=== PATIENT | male | born 1950 ===

== ENCOUNTER → 2016-05-02 | Outpatient (CLI) | payer MEDICARE ==
[~2016-05-02] MED LIST: ALBUTEROL2.5 MG/0.5 INH; AMIODARONE HCL100 MG PO; ARTIFICIAL TEAR15 M5 OPHTH; BOOST BREEZE237 ML PO; CALCIUM 500 +1 EAC2 PO; COUMADIN ** IA3 MG PO; COUMADIN6 MG PO; CPAP; CPAP INH; DELTASONE5 MG PO; DULCOLAX10 MG R; FLORINEF0.1 MG PO; FOLIC ACID1 MG PO; FOSAMAX70 MG PO; HUMIBID LA (MU600 MG PO; HYDROCORTISON28.4 G2 TOP; IPRAT-ALBUT 0.5-3 ML INH; K-TAB ER20 MEQ PO; K-TAB OR KLOR-10 MEQ PO; KLOR-CON M2020 MEQ PO; LACTINEX (FLORA1 TAB PO; LOTRIMIN30 GM TOP; MILK OF MA400 MG/5 M PO; MINIPRESS2 MG PO; MIRALAX17 GM PO; NEURONTIN300 MG PO; NIZORAL30 GM TOP; OXYCONTIN EXTEN10 MG PO; OXYGEN M-15 NS; PAXIL20 MG PO; PAXIL40 M1 PO; PERCOCET 10-321 EACH PO; PRAVACHOL80 MG PO; PRILOSEC20 MG PO; REMERON 30 MG30 MG PO; RHEUMATREX2.5 MG PO; RISPERDAL1 MG PO; ROCEPHIN1 G1 IM; TOPROL XL25 MG PO; TRIACET 0.1% 8080 GM TOP; TYLENOL325 MG PO; ULTRAM50 MG PO; VASOTEC2.5 MG PO; VITAMIN B-1000 MCG/M SUB-Q; VITAMIN D35000 UNI1 PO; XANAX0.5 MG PO
[2016-05-02 10:04] LABS: PROTIME 22.3 SECONDS (9.6-11.1)
== END | disposition disaster alternative care site (69) ==
LOC: LJOHN2 05-01 17:08
PROVIDERS: Family Medicine
DX: I48.91 Unspecified atrial fibrillation (principal)

== ENCOUNTER 2016-05-24 11:43 | Emergency (ER) | payer MEDICARE ==
--- NOTE | ~2016-05-24 | ER ---
PATIENT'S NAME: MELECIO DUMONT [facility] AGE: 66 Y [address] ROOM: [place] [address] LOCATION: [facility] ADMIT DATE: 05/24/2016 ER/Outpatient Report DISCHARGE DATE: 05/24/2016 FAMILY PHYSICIAN: Bud Herr MD ATTENDING PHYSICIAN: Dayne Owusu Admission date and time documented on the medical record. I saw the patient at 1145 hours. CHIEF COMPLAINT: Sore throat and problem with swallowing. HISTORY OF PRESENT ILLNESS: This patient is a 66-year-old male, brought to the emergency room for evaluation, sore throat, and difficulty swallowing. The patient lives at [facility]. He signed a form, stating that he did not want to take the thickened liquid diet and he wanted regular liquids. He does have a problem with dysphagia and aspiration. The patient has been having a sore throat and some problem with swallowing and some changes in his mentation and his breathing. The snf was concerned that he may have developed an aspiration pneumonia. The patient initially went to [facility] and then was directed here to the emergency room for evaluation. The patient does have a history of COPD, hypertension, and acute on chronic respiratory failure. He has had previous aspiration pneumonias. He is chronically anticoagulated with Coumadin. He does have cerebrovascular disease. Multiple medical problems. Denies any shortness of breath or chest pain. No abdominal pain. He has not had any nausea, vomiting, diarrhea, or urinary complaints. No headache, eyes, ears, nose, throat, neck, or spine pain. No extremity pain. No fall or trauma. The patient denies lightheadedness, dizziness, syncope, or near syncope. The patient does have posttraumatic stress disorder and schizophrenia. No endocrine problems. HOME MEDICATIONS: See attached medication list. ALLERGIES: AVELOX AND MOXIFLOXACIN. SOCIAL HISTORY: Nonsmoker and nondrinker. SIGNIFICANT PAST MEDICAL HISTORY: Hypertension; COPD; chronic respiratory failure; pneumonia; gastroesophageal reflux; paroxysmal atrial fibrillation; chronic anticoagulation with Coumadin; dysphagia; cerebrovascular disease; obstructive sleep apnea, on CPAP; PATIENT'S NAME: MELECIO DUMONT [facility] AGE: 66 Y [address] ROOM: [place] [address] LOCATION: [facility] ADMIT DATE: 05/24/2016 ER/Outpatient Report DISCHARGE DATE: 05/24/2016 FAMILY PHYSICIAN: Bud Herr MD ATTENDING PHYSICIAN: Dayne Owusu orthostatic hypotension; neutropenia; remote tobacco abuse; exogenous obesity; pulmonary embolism; degenerative osteoarthritis, posttraumatic stress disorder; schizophrenia; and vertebral compression fractures. OPERATIONS: Epidural steroid injection, right knee arthroscopy, cholecystectomy, catheterization, back surgery, and right ankle surgery. REVIEW OF SYSTEMS: All systems reviewed by me are negative with the exception of those discussed in the history of present illness. PHYSICAL EXAMINATION: VITAL SIGNS: Temperature 97.4 tympanic, pulse 92, blood pressure 118/73, and O2 saturation on 3 L oxygen per nasal cannula is 94%. HEAD: Normocephalic. No abrasion, contusion, laceration, or swelling of the scalp or face. EYES: Extraocular muscles intact. PERRL. EARS: Clear TMs bilaterally. NOSE: Clear. THROAT: Posterior pharynx clear. Mucous membranes are dry from mouth breathing. NECK: No nuchal rigidity. No findings of adenopathy. LUNGS: Basilar rales. No rhonchi or wheezes. Otherwise, fairly good air flow. HEART: Regular. Pulses are palpable. No chest pain to palpation. ABDOMEN: Obese, soft, nondistended, and nontender. Good bowel tones. No organomegaly or abnormal masses palpable. EXTREMITIES: Without peripheral edema, cyanosis, or deformity. NEUROVASCULAR: Intact. SKIN: Clear. IMAGING DATA: Chest x-ray showed no acute infiltrate. Does have some increased vascular congestion. We will review x-ray with the radiologist. LABORATORY DATA: CMS was normal except for a low anion gap of 8.8. Amylase and lipase were normal. CPK was normal at 138. Point of care cardiac enzymes were normal. CRP was 5.04. ProBNP was slightly elevated at 174. White count was 4700, 71 segs, 15 lymphs, 12 monos, hemoglobin was 13.4, hematocrit 41.0, and platelet count was low at 106,000. Lactate was 0.9. Procalcitonin was 0.05. EKG showed sinus rhythm. No acute ST elevation, ischemic change, or arrhythmia. IMPRESSION: PATIENT'S NAME: MELECIO DUMONT [facility] AGE: 66 Y [address] ROOM: [place] [id number] LOCATION: ED ADMIT DATE: 05/24/2016 ER/Outpatient Report DISCHARGE DATE: 05/24/2016 FAMILY PHYSICIAN: Bud Herr MD ATTENDING PHYSICIAN: Dayne Owusu 1. Sore throat secondary to dry mucous membranes from mouth breathing. 2. Dysphagia. No evidence of aspiration pneumonia at this time. 3. Increased pulmonary vascular congestion. 4. Hypertension. 5. Chronic obstructive pulmonary disease with a history of chronic respiratory failure. 6. Paroxysmal atrial fibrillation, chronically anticoagulated with Coumadin. 7. Cerebrovascular disease. 8. Obstructive sleep apnea, using CPAP. 9. Remote tobacco abuse. 10. Exogenous obesity. 11. History of posttraumatic stress disorder and schizophrenia. PLAN: I did discuss my findings and recommendations with the patient. We will continue on his present medications and treatment plans. Follow up with personal physician in 7 days or sooner if needed. DAYNE OWUSU MD SDS/modl /[id number] d: 05/24/16 2206 t: 05/25/16 0633, OUTPATIENT REPORT
[~2016-05-24 11:43] MED LIST changes: -BOOST BREEZE237 ML PO; -LOTRIMIN30 GM TOP; -NEURONTIN300 MG PO; -TRIACET 0.1% 8080 GM TOP
[2016-05-24 12:27] LABS: EOSINOPHIL % 0.4 %; HEMOGLOBIN 13.4 g/dL (11.0-16.0); IMMATURE GRANULOCYTE # 0.1 K/uL (0.0-0.3); IMMATURE GRANULOCYTE % 2.3 %; LYMPHOCYTE # 0.7 K/uL (0.8-4.0); LYMPHOCYTE % 14.5 %; MCH 32.1 pg (27.0-34.0); MCHC 32.7 gm/dL (32.0-36.5); MCV 98.1 fl (83.0-98.0); MONOCYTE # 0.6 K/uL (0.0-1.0); MONOCYTE % 11.9 %; MPV 10.4 fl (9.4-12.4); NEUTROPHIL # (ANC) 3.3 K/uL (1.4-9.0); NEUTROPHIL % 70.9 %; NRBC % 0 /100WBC (0-0.00); PLATELET COUNT 106 K/uL (150-450); RBC 4.18 M/uL (3.50-5.50); RDW-CV 13.1 % (11.9-14.6); WBC 4.7 K/uL (4.0-11.0)
[2016-05-24 12:43] LABS: ALBUMIN 3.1 gm/dL (3.5-5.0); ALK PHOS 70 IU/L (33-138); ALT 16 IU/L (12-78); ANION GAP 8.8 (10.0-19.0); AST 18 IU/L (10-40); BLOOD UREA NITROGEN 12 mg/dL (6-24); CALCIUM 9.1 mg/dL (8.5-10.5); CHLORIDE 106 mMol/L (96-110); CO2 32 mMol/L (22-32); CPK 138 IU/L (35-332); CREATININE 0.9 mg/dL (0.6-1.3); ESTIMATED GFR (MDRD EQUATION) > 60; POTASSIUM 3.8 mMol/L (3.7-5.1); SODIUM 143 mMol/L (135-145); TOTAL BILIRUBIN 1.2 mg/dL (0.0-1.5); TOTAL PROTEIN 6.8 g/dL (6.0-8.4)
== END 2016-05-24 14:30 | disposition disaster alternative care site (69) ==
LOC: GMED 11:43
PROVIDERS: Emergency Medicine
DX: R68.2 Dry mouth, unspecified (principal); J02.9 Acute pharyngitis, unspecified; R13.10 Dysphagia, unspecified; R09.89 Other specified symptoms and signs involving the circulatory and respiratory systems; I10 Essential (primary) hypertension; J44.9 Chronic obstructive pulmonary disease, unspecified; I48.0 Paroxysmal atrial fibrillation; G47.33 Obstructive sleep apnea (adult) (pediatric); E66.9 Obesity, unspecified; F43.10 Post-traumatic stress disorder, unspecified; F20.9 Schizophrenia, unspecified; M19.90 Unspecified osteoarthritis, unspecified site; Z79.01 Long term (current) use of anticoagulants; K21.9 Gastro-esophageal reflux disease without esophagitis; Z88.1 Allergy status to other antibiotic agents; Z86.73 Personal history of transient ischemic attack (TIA), and cerebral infarction without residual deficits; Z87.01 Personal history of pneumonia (recurrent); Z86.711 Personal history of pulmonary embolism; Z90.49 Acquired absence of other specified parts of digestive tract; Z98.890 Other specified postprocedural states

== ENCOUNTER → 2016-05-30 | Outpatient (CLI) | payer MEDICARE ==
[~2016-05-30] MED LIST changes: +BOOST BREEZE237 ML PO; +LOTRIMIN30 GM TOP; +NEURONTIN300 MG PO; +TRIACET 0.1% 8080 GM TOP
[2016-05-30 09:42] LABS: PROTIME 22.6 SECONDS (9.6-11.1)
== END | disposition disaster alternative care site (69) ==
LOC: LJOHN2 05-29 12:09
PROVIDERS: Family Medicine
DX: I48.91 Unspecified atrial fibrillation (principal)

== ENCOUNTER → 2016-06-27 | Outpatient (CLI) | payer MEDICARE ==
[2016-06-27 10:11] LABS: INR - (THERAPEUTIC) 3.95 (0.92-1.07); PROTIME 42.1 SECONDS (9.8-11.4)
== END ==
LOC: LJOHN2 06-26 14:26
PROVIDERS: Family Medicine
DX: I48.91 Unspecified atrial fibrillation (principal)

== ENCOUNTER → 2016-06-28 | Outpatient (CLI) | payer MEDICARE ==
[2016-06-28 13:33] LABS: INR - (THERAPEUTIC) 1.24 (0.92-1.07); PROTIME 13.1 SECONDS (9.8-11.4)
== END ==
LOC: LJOHN2 12:34
PROVIDERS: Family Medicine
DX: I48.91 Unspecified atrial fibrillation (principal)

== ENCOUNTER → 2016-07-05 | Outpatient (CLI) | payer MEDICARE ==
[2016-07-05 11:04] LABS: INR - (THERAPEUTIC) 2.54 (0.92-1.07); PROTIME 26.9 SECONDS (9.8-11.4)
== END | disposition disaster alternative care site (69) ==
LOC: LJOHN2 10:52
PROVIDERS: Family Medicine
DX: I48.91 Unspecified atrial fibrillation (principal)

== ENCOUNTER → 2016-07-18 | Outpatient (CLI) | payer MEDICARE ==
[2016-07-18 14:13] LABS: ALBUMIN 2.9 gm/dL (3.5-5.0); TOTAL PROTEIN 6.4 g/dL (6.0-8.4)
== END | disposition disaster alternative care site (69) ==
LOC: LCNC 13:44
PROVIDERS: Internal Medicine Interventional Cardiology
DX: Z79.899 Other long term (current) drug therapy (principal)

== ENCOUNTER → 2016-08-01 | Outpatient (CLI) | payer MEDICARE ==
[2016-08-01 09:55] LABS: INR - (THERAPEUTIC) 3.01 (0.92-1.07)
== END | disposition disaster alternative care site (69) ==
LOC: LJOHN2 07-31 16:35
PROVIDERS: Family Medicine
DX: I48.91 Unspecified atrial fibrillation (principal)

== ENCOUNTER → 2016-08-04 | Outpatient (CLI) | payer MEDICARE ==
[2016-08-04 07:39] LABS: INR - (THERAPEUTIC) 4.04 (0.92-1.07)
== END | disposition disaster alternative care site (69) ==
LOC: LJOHN2 07:05
PROVIDERS: Family Medicine
DX: I48.91 Unspecified atrial fibrillation (principal); I10 Essential (primary) hypertension; I69.90 Unspecified sequelae of unspecified cerebrovascular disease

== ENCOUNTER → 2016-08-05 | Outpatient (CLI) | payer MEDICARE ==
[2016-08-05 10:58] LABS: INR - (THERAPEUTIC) 2.84 (0.92-1.07); PROTIME 30.1 SECONDS (9.8-11.4)
== END | disposition disaster alternative care site (69) ==
LOC: LJOHN2 10:50
PROVIDERS: Family Medicine
DX: I10 Essential (primary) hypertension (principal); I48.91 Unspecified atrial fibrillation

== ENCOUNTER → 2016-08-11 | Outpatient (CLI) | payer MEDICARE ==
[2016-08-11 06:59] LABS: INR - (THERAPEUTIC) 3.1 (0.92-1.07); PROTIME 32.9 SECONDS (9.8-11.4)
== END ==
LOC: LJOHN2 06:48
PROVIDERS: Family Medicine
DX: I10 Essential (primary) hypertension (principal); I48.91 Unspecified atrial fibrillation

== ENCOUNTER → 2016-08-28 | Outpatient (CLI) | payer MEDICARE ==
[2016-08-28 10:45] LABS: INR - (THERAPEUTIC) 6.63 (0.92-1.07)
== END | disposition disaster alternative care site (69) ==
LOC: LJOHN2 04:42
PROVIDERS: Family Medicine
DX: I48.91 Unspecified atrial fibrillation (principal)

== ENCOUNTER → 2016-08-31 | Outpatient (CLI) | payer MEDICARE ==
[2016-08-31 08:41] LABS: INR - (THERAPEUTIC) 3.91 (0.92-1.07); PROTIME 41.6 SECONDS (9.8-11.4)
== END | disposition disaster alternative care site (69) ==
LOC: LJOHN2 08:06
PROVIDERS: Family Medicine
DX: I48.91 Unspecified atrial fibrillation (principal)

== ENCOUNTER → 2016-09-01 | Outpatient (CLI) | payer MEDICARE ==
[2016-09-01 07:32] LABS: INR - (THERAPEUTIC) 2.8 (0.92-1.07); PROTIME 29.7 SECONDS (9.8-11.4)
== END | disposition disaster alternative care site (69) ==
LOC: LJOHN2 07:17
PROVIDERS: Family Medicine
DX: I48.91 Unspecified atrial fibrillation (principal)

== ENCOUNTER → 2016-09-08 | Outpatient (CLI) | payer MEDICARE ==
[2016-09-08 11:24] LABS: INR - (THERAPEUTIC) 4.73 (0.92-1.07); PROTIME 50.4 SECONDS (9.8-11.4)
== END | disposition disaster alternative care site (69) ==
LOC: LJOHN2 10:50
PROVIDERS: Family Medicine
DX: I48.91 Unspecified atrial fibrillation (principal)

== ENCOUNTER → 2016-09-12 | Outpatient (CLI) | payer MEDICARE ==
[2016-09-12 08:05] LABS: INR - (THERAPEUTIC) 3.9 (0.92-1.07); PROTIME 41.5 SECONDS (9.8-11.4)
== END | disposition disaster alternative care site (69) ==
LOC: LJOHN2 07:40
PROVIDERS: Family Medicine
DX: D69.59 Other secondary thrombocytopenia (principal); I48.91 Unspecified atrial fibrillation

== ENCOUNTER → 2016-09-14 | Outpatient (CLI) | payer MEDICARE ==
[2016-09-14 08:42] LABS: INR - (THERAPEUTIC) 3.02 (0.92-1.07); PROTIME 32.1 SECONDS (9.8-11.4)
== END | disposition disaster alternative care site (69) ==
LOC: LJOHN2 08:34
PROVIDERS: Family Medicine
DX: I48.91 Unspecified atrial fibrillation (principal)

== ENCOUNTER → 2016-09-20 | Outpatient (CLI) | payer MEDICARE ==
[2016-09-20 07:35] LABS: ALBUMIN 2.9 gm/dL (3.5-5.0); CALCIUM 9.4 mg/dL (8.5-10.5); CREATININE 1.1 mg/dL (0.6-1.3); POTASSIUM 3.6 mMol/L (3.7-5.1); TOTAL PROTEIN 5.7 g/dL (6.0-8.4)
[2016-09-20 07:38] LABS: ANION GAP 8.6 (10.0-19.0); TOTAL BILIRUBIN 1.4 mg/dL (0.0-1.5)
== END | disposition disaster alternative care site (69) ==
LOC: LJOHN2 07:17
PROVIDERS: Family Medicine
DX: J96.02 Acute respiratory failure with hypercapnia (principal); D84.9 Immunodeficiency, unspecified; R73.9 Hyperglycemia, unspecified; J44.1 Chronic obstructive pulmonary disease with (acute) exacerbation; E83.52 Hypercalcemia

== ENCOUNTER 2016-09-21 08:26 | Inpatient (IN) | payer MEDICARE ==
[~2016-09-21] VITALS: Ht 198.1 cm; Wt 112.3 kg
--- NOTE | ~2016-09-21 | CON ---
PATIENT'S NAME: MELECIO DUMONT [facility] AGE: 66 Y [address] ROOM: [address] [address] LOCATION: GICU ADMIT DATE: 09/21/2016 Consultation DISCHARGE DATE: FAMILY PHYSICIAN: Bud Herr MD ATTENDING PHYSICIAN: Alonzo Lowe REFERRING PHYSICIAN: Nick Patel MD REFERRING PHYSICIAN: Dr. Stubbs. REASON FOR CONSULTATION: Hypernatremia. HISTORY OF PRESENT ILLNESS: A 66-year-old male patient with history of diabetes type 2, AFib, on long-term anticoagulation, admitted with pneumonia, sepsis septic shock, and acute type 2 respiratory failure. During the hospital visit, the patient developed CRISTI with creatinine went up to 2.3, possibly secondary to septic ATN; however, renal function improved with conservative management with current value of 1. The patient got IV hydration during the initial hospital admission. Sodium was initially 156, improved to 152, but reasonably got stuck there for the past 24-36 hours. Notably, he also has significant urine output for the last 24 hours with urine output reaching almost of 7 L. urine osmolality done yesterday was 291 with serum osmolality of 309. Nephrology consultation has been called for hypernatremia. During my evaluation, the patient appears to be intubated, although insensitive, but is alert and following verbal commands. Although initially he was on vancomycin and Zosyn, but now antibody has been downgraded to vancomycin. Rocephin and acyclovir have been added. The patient is currently afebrile. The patient is getting Osmolite 1.5 at the rate of 75 mL/h. The patient also getting free water flushes which has been increased to 250 q.4 hours early, but is not getting any D5W for now. As known, the patient has no significant prior history of hypernatremia in the past. Notably, he also has mild hypokalemia and low phosphate and the patient is on Florinef for significant orthostatic hypotension and on high dose hydrocortisone. ALLERGIES: MOXIFLOXACIN. PAST MEDICAL HISTORY: 1. Chronic hypoxic respiratory failure. 2. History of pulmonary embolism on long-term anticoagulation with Warfarin. 3. Paroxysmal atrial fibrillation. 4. Morbid obesity with obstructive sleep apnea. 5. 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 6. Post traumatic stress disorder. 7. History of schizophrenia. 8. Osteoarthritis. 9. Chronic pain syndrome. CURRENT MEDICATIONS: As per the chart.PATIENT'S NAME: MELECIO DUMONT [facility] AGE: 66 Y [address] ROOM: [id number] [place], [place] [address] [address]: [facility] ADMIT DATE: 09/21/2016 Consultation DISCHARGE DATE: FAMILY PHYSICIAN: Bud Herr MD ATTENDING PHYSICIAN: Alonzo Lowe FAMILY HISTORY: Congestive heart failure in his father, at age of 80. Mother of 75, however, cause is unknown. SOCIAL HISTORY: and lives in a senior living facility in [place]. Has a 50-year history of smoking, stopped about 8 years back. No history of alcohol abuse. REVIEW OF SYSTEMS: Complete review of systems could not be obtained as patient is intubated and on mechanical ventilator. PHYSICAL EXAMINATION: VITAL SIGNS: Blood pressure 137/78, pulse 59, respiratory rate 13, afebrile, saturating at 93-95%. GENERAL: Elderly male, intubated on mechanical ventilator. HEAD: Moist mucous membranes. ET tube in, following verbal commands. NECK: No JVD, thyromegaly or lymphadenopathy. CVS: S1 and S2 plus, currently at regular rate and rhythm. No significant murmur. CHEST: Bilateral air entry equal. Equal anteriorly. No wheeze or rales. ABDOMEN: Soft, nontender, nondistended. Bowel sounds present. EXTREMITIES: No cyanosis, clubbing, jaundice. No dependent edema. MUSCULOSKELETAL: No limitation of range of motion. SKIN: No pallor, cyanosis, icterus. CORE PASTER: Although sedated, but eyes are open. Following commands. No gross focal neurological deficit. LABORATORY EVALUATION: Sodium 152, potassium 3.6, chloride 120, bicarb 35, BUN 11, creatinine 1, glucose 165, calcium 8.7. WBC 4, hemoglobin 10.7, magnesium 2.1, phosphorus 1.6. ASSESSMENT AND PLAN: 1. Hypernatremia possibly related to osmotic plus post acute tubular necrosis diuresis. Urine output is very high. Total osmotic secretion is more than 2000 milliosmol in last 24 hours. Assaultive of osmotic component, we will discontinue Osmolite 1.5 and will switch to Osmolite 1 at 70 mL/h. We will let increase it to 100 in a couple of days to meet the calorie requirement. The D5W has to be started at 200 mL/h as free water deficit is more than 6 L. Continue the free water flush through the OG at 250 q.4 to continue and we will check serum sodium q.12 hourly. Regarding potassium, phosphorus, and other electrolyte supplementation, we would avoid parenteral supplementation as those solutions are mostly hypertonic. We will try to switch him to p.o. or via OG tube. Please monitor strict intake and output and will switch all antibiotic and antifungal IV preparation to D5 rather than normal saline. PATIENT'S NAME: MELECIO DUMONT [facility] AGE: 66 Y [address] ROOM: [place] [address] LOCATION: [facility] ADMIT DATE: 09/21/2016 Consultation DISCHARGE DATE: FAMILY PHYSICIAN: Bud Herr MD ATTENDING PHYSICIAN: Alonzo Lowe 2. Acute kidney injury, possibly prerenal versus septic acute tubular necrosis which has almost resolved. Creatinine has almost come back to baseline; however, still there is significant residual renal injury. 3. Pneumonia with MRSA, currently on vanc, Rocephin, and acyclovir. Septic shock, improving slowly. 4. Hypokalemia along with hypophosphatemia. Switch potassium supplementation to Neutra-Phos p.o. or K-Phos p.o. to avoid giving extra sodium into the patient. 5. Acute on chronic hypoxic respiratory failure, currently intubated on mechanical ventilator. Pulmonary Critical Care Team is on board. Defer further to the primary team. 6. Dysphagia with recurrent aspiration. The patient may need possible feeding tube in the rat exterminator. 7. Pulmonary embolism and long-term anticoagulation with warfarin. PT and INR have to be monitored. 8. Diabetes mellitus type 2. We will go for fingerstick blood sugar and sliding scale. 9. Past cerebrovascular accident with residual neuro deficit. 10. Morbid obesity. 11. Hypertension. The patient is in septic shock. We will hold antihypertensive at this point. Thank you for allowing me to participate in this patient's care. We will closely monitor the patient's progress along with you. ABHISEKH AMBREEN FARRELL MD /modl /[id number] d: 09/25/16 1314 t: 10/07/16 0921, CONSULTATION REPORT
--- NOTE | ~2016-09-21 | ENPV ---
Vascular Lower Extremities DVT Study Procedure Demographics Patient Name MELECIO DUMONT Date of Study 09/25/2016 Patient Number [id number] Gender Male Date of 1950 Age 66 Visit Number [id number] Height Accession Number [id number] Weight Room Number G6203 BSA BMI Referring Mynor Pryor MD Interpreting Willian Jensen MD Physician Physician Physician Ordering Physician Lavell Hammonds [employer] And Cover Line Worker Mary Knapp RDCS, RVT Ry Rangel RVT Conclusions Summary No evidence of deep vein thrombosis or superficial thrombophlebitis in the lower extremities bilaterally . Procedure Type of Study: Veins:Lower Extremities DVT Study, Venous Duplex Lower Extremity Bilateral. Indications for Study:Extended bedrest and Pain, edema, discoloration. Additional Indications:extended bed rest Appropriate Use Criteria:7 Patient Status:Routine. Study Location:Inpatient Portable. Technical Quality:Adequate visualization. Velocities are measured in cm/s ; Diameters are measured in cm Right Lower Extremities DVT Study Measurements Right 2D and Doppler Measurements + + + + +------+------+ + !Location !Visualized!Compressibility!Thrombosis!Signal!Reflux!Reflux ! ! ! ! ! ! ! !(sec) ! + + + + +------+------+ + !GSV Thigh !Yes !Yes !None !Phasic!No ! ! + + + + +------+------+ + !Common !Yes !Yes !None !Phasic!No ! ! !Femoral ! ! ! ! ! ! ! + + + + +------+------+ + !Prox !Yes !Yes !None !Phasic!No ! ! !Femoral ! ! ! ! ! ! ! + + + + +------+------+ + !Mid Femoral!Yes !Yes !None !Phasic!No ! ! + + + + +------+------+ + !Dist !Yes !Yes !None !Phasic!No ! ! !Femoral ! ! ! ! ! ! ! + + + + +------+------+ + !Popliteal !Yes !Yes !None !Phasic!No ! ! + + + + +------+------+ + !Gastroc !Yes !Yes !None !Phasic!No ! ! + + + + +------+------+ + !PTV !Yes !Yes !None !Phasic!No ! ! + + + + +------+------+ + !Peroneal !Yes !Yes !None !Phasic!No ! ! + + + + +------+------+ + Left Lower Extremities DVT Study Measurements Left 2D and Doppler Measurements + + + + +------+------+ + !Location !Visualized!Compressibility!Thrombosis!Signal!Reflux!Reflux ! ! ! ! ! ! ! !(sec) ! + + + + +------+------+ + !GSV Thigh !Yes !Yes !None !Phasic!No ! ! + + + + +------+------+ + !Common !Yes !Yes !None !Phasic!No ! ! !Femoral ! ! ! ! ! ! ! + + + + +------+------+ + !Prox !Yes !Yes !None !Phasic!No ! ! !Femoral ! ! ! ! ! ! ! + + + + +------+------+ + !Mid Femoral!Yes !Yes !None !Phasic!No ! ! + + + + +------+------+ + !Dist !Yes !Yes !None !Phasic!No ! ! !Femoral ! ! ! ! ! ! ! + + + + +------+------+ + !Popliteal !Yes !Yes !None !Phasic!No ! ! + + + + +------+------+ + !Gastroc !Yes !Yes !None !Phasic!No ! ! + + + + +------+------+ + !PTV !Yes !Yes !None !Phasic!No ! ! + + + + +------+------+ + !Peroneal !Yes !Yes !None !Phasic!No ! ! + + + + +------+------+ + Impressions Right Impression no DVT seen Left Impression no DVT seen Signature dtt: dtd: 09/25/16 0643 Physician Self Edit
--- NOTE | ~2016-09-21 | CON ---
PATIENT'S NAME: OG DUMONT [facility] AGE: 66 Y [address] ROOM: [address] [address] LOCATION: GICU ADMIT DATE: 09/21/2016 Consultation DISCHARGE DATE: FAMILY PHYSICIAN: Bud Herr MD ATTENDING PHYSICIAN: Alonzo Lowe DATE OF CONSULTATION: 09/25/2016 REFERRING PHYSICIAN: Nick Patel MD TIME SEEN: 5 p.m. HISTORY OF PRESENT ILLNESS: Mr. Dumont is a 66-year-old male patient who resides at [facility] for at least 4 years. He has chronic medical issues including atrial fibrillation, for which he has been maintained on anticoagulation on warfarin; chronic issues with pneumonia associated with a recent admission back in March and treated in this hospital; and now comes in with a recurrent pneumonia. The patient was transferred here to this hospital due to a progressively poor responsiveness during the course of the last few weeks. It resulted in the patient finally not following commands and not even speaking. He was found to have significant hypoxemia and was found on a chest x-ray to have patchy parenchymal opacity in the mid and lower left lung, that had improved upon repeat chest x-rays the next day upon his admission. Due to the patient's poor mental status, issues with acute hypercapnia, and hypoxemic respiratory failure, he required intubation. Neurology was actually asked to comment on the patient as he was intubated, but having frequent tremors in his bilateral upper and lower extremities, thought potentially that the patient was having seizures, however, there was no evidence that the patient was having changes in his vital signs, such as tachycardia and dilation of pupils which would be seen in generalized seizure. I had read over the EEG and saw no evidence of any background rhythm suggesting of seizures. When I saw the patient, he had received both Ativan and Haldol in the late morning and early afternoon, and I did not see the patient with any active tremoring, did have some tremors in his left lower extremity. He was alerting to persons in the room and was actually recognizing persons and attempting to smile. He was clearly tired and mostly was sleeping. He did not have any signs to suggest active seizures, and according to the nurse was doing better over the course of the last few hours. PRIOR MEDICAL HISTORY: As mentioned atrial fibrillation, on long-term warfarin therapy; chronic dysphagia; diabetes type 2; chronic low back pain. At baseline, the patient is unable to ambulate due to chronic back issues, he is relegated to a wheelchair. He had admissions to this hospital for repeat pneumonias with PATIENT'S NAME: OG DUMONT [facility] AGE: 66 Y [address] ROOM: [place] [address] LOCATION: [facility] ADMIT DATE: 09/21/2016 Consultation DISCHARGE DATE: FAMILY PHYSICIAN: Bud Herr MD ATTENDING PHYSICIAN: Alonzo Lowe. He suffers from posttraumatic stress disorder associated with supposedly service in [place]. He does have a severe history of schizophrenia. According to the medical record, he is essentially mostly nonverbal for many years. ALLERGIES: MOXIFLOXACIN. HOME MEDICATIONS: 1. Coumadin daily. 2. Folate 1 mg p.o. daily. 3. Fosamax 70 mg p.o. weekly. 4. Potassium 30 mEq p.o. daily. 5. MiraLax 17 g p.o. daily p.r.n. 6. Paxil 20 mg p.o. daily. 7. Pravastatin 80 mg p.o. daily. 8. Vitamin B12 1000 mcg IM every month. 9. Terazosin 2 mg daily. 10. Prednisone 2.5 mg daily. 11. Remeron 30 mg p.o. daily. 12. Metoprolol ER 25 mg daily. 13. Prilosec 20 mg daily. 14. Risperidone 1 mg twice a day. 15. Alprazolam 0.5 mg p.o. b.i.d. 16. Gabapentin 300 mg tablet p.o. 3 times a day. 17. Percocet 10/325 mg tablet p.o. q.6 hours p.r.n. pain. SURGICAL HISTORY: He has a history of cholecystectomy, right ankle surgery, heart catheterization, and prior lumbar back surgery. Also had an ORIF of the left hip. FAMILY HISTORY: His mother at age 75 and his father at age 80 of congestive heart failure. SOCIAL HISTORY: He resides at [facility]. He is essentially nonambulatory. He is mostly nonverbal. He has very little at all interaction with any staff or persons at his assisted. He was a chronic smoker for 50 pack years, he quit many years ago. He has no alcohol history. He is a [place] . REVIEW OF SYSTEMS: The patient was intubated presently, but he was alerting to voice. He was following basic commands to raise his arms. He was tracking with his eyes in PATIENT'S NAME: OG DUMONT [facility] AGE: 66 Y [address] ROOM: [place] [address] LOCATION: [facility] ADMIT DATE: 09/21/2016 Consultation DISCHARGE DATE: FAMILY PHYSICIAN: Bud Herr MD ATTENDING PHYSICIAN: Alonzo Lowe all 4 quadrants. He had a mild tremor in his left lower extremity. His upper extremities did not demonstrate any tremors presently. He had acute respiratory failure with some elevation in his CO2 to 47 and pH of 7.34 prior to intubation; sequent to intubation, pH 7.52, pCO2 of 39. No evidence of any active seizures. Tremors were well controlled after receiving Haldol. By history, the patient has severe issues with schizophrenia and has been on multiple antipsychotic medications. No known history of stroke. No known history of seizures. PHYSICAL EXAMINATION: GENERAL: This is a 66-year-old male patient who is intubated. He was alerting, following basic commands to move his arms and squeeze my hand, he was tracking with his eyes. He did appear to be tired and mostly was sleepy. He did not have any extra movements of his limbs and no jerking of his limbs to suggest any tonic-clonic activity. NEUROLOGIC: Cranial Nerves: Pupils were equal and reactive to light at 4 mm bilaterally. There was normal facial symmetry. There was normal tone of the bilateral upper and lower extremities. The patient followed basic commands to move his arms, but testing of his muscle power was unable to be done, the patient having poor compliance. He withdrew to pain in all 4 limbs. IMPRESSION: Mr. Og Dumont is doing better post intubation. He had lot of tremors earlier upon his admission and was thought potentially that he was having seizure activity. By history, this does not seem to be the case and likely the patient had significant tremoring even like a seizure, which is probably more psychogenic in origin. I do not think that this represented some metabolic state clearly after the patient received an antipsychotic of Haldol, the tremors improved, thus I would relegate most of his tremors to being related to his underlying psychiatric issues and possibly even it is like seizure, it is often seen in persons on antipsychotic medications. EEG again was reviewed and showed no evidence of any background rhythm to suggest epileptiform features. The background rhythm was generally slow at 7 hertz with the patient being sleepy at the time. I do believe that the patient will likely do fairly well with this admission and likely would progress to extubation. At baseline, the patient has a very poor quality of life with severe issues of schizophrenia and he is essentially nonverbal and noncommunicative most of the time. He would answer simple questions with 1 or 2 word answers at his baseline. The patient will likely do well here in the hospital. Family has been conversed with concerning long-term care issues such as the need for trach or PEG placement. At this time, best that we wait on these issues to see how the patient does recover here in our hospital. PATIENT'S NAME: OG DUMONT [facility] AGE: 66 Y [address] ROOM: [place] [address] LOCATION: [facility] ADMIT DATE: 09/21/2016 Consultation DISCHARGE DATE: FAMILY PHYSICIAN: Bud Herr MD ATTENDING PHYSICIAN: Alonzo Lowe MD HECTOR LUCAS/filil /[id number] d: 09/27/16 0100 t: 10/31/16 1514, CONSULTATION REPORT
--- NOTE | ~2016-09-21 | NDGEN ---
PATIENT'S NAME: MELECIO DUMONT [facility] AGE: 66 Y [address] ROOM: [address] [address] LOCATION: [facility] ADMIT DATE: 09/21/2016 Neurodiagnostics DISCHARGE DATE: FAMILY PHYSICIAN: Bud Herr MD ATTENDING PHYSICIAN: Alonzo Lowe PROCEDURE: ELECTROENCEPHALOGRAM DATE OF PROCEDURE: 09/29/2016 PROCEDURE PERFORMED: EEG. The patient had this EEG done on 09/29/2016 at 2:05 p.m. INDICATIONS: This EEG is a repeat EEG on a patient who came in with mental status changes in the setting of pneumonia. At baseline, the patient has severe mental disability as well as schizophrenia and is nonverbal. The patient was noted today to have a lot of jerking of the limbs and rolling back of his eyes, though it was thought to be possible for seizures. This EEG was done to look for any evidence of any epileptiform features. DESCRIPTION OF PROCEDURE: This is a 21-lead EEG, which was done with photic stimulation. The background rhythm with the patient not being alert and eyes closed revealed a 6-7 hertz background rhythm that remained stable throughout the whole recording. At no time was there any jerking of the limbs which had ceased at the time of this recording. Apparently, the patient either received Ativan or Haldol. At no time was there any epileptiform features such as spike or spike-wave pattern, and no seizures were recorded. IMPRESSION: The background rhythm was a bit slow on the 6-7 hertz range, but no evidence of any active seizures, and no epileptiform features seen. MD HECTOR LUCAS/modl /[id number] dtt: 10/31/16 1520 , LUKE REYES dtd: 09/29/16 1800
--- NOTE | ~2016-09-21 | ER ---
PATIENT'S NAME: MELECIO DUMOTN [facility] AGE: 66 Y [address] ROOM: [place] [address] LOCATION: GICU ADMIT DATE: 09/21/2016 ER/Outpatient Report DISCHARGE DATE: FAMILY PHYSICIAN: Bud Herr MD ATTENDING PHYSICIAN: Alonzo Lowe TIME OF ARRIVAL: 0826 hours. TIME OF EVALUATION: 0826 hours. CHIEF COMPLAINT: Unresponsive. HISTORY OF PRESENT ILLNESS: The patient is a 66-year-old male who presents to the emergency department today with a chief complaint of an unresponsive episode. The patient is in the jail. Apparently, went to be checked on and was noted to be unresponsive and having difficulties breathing. The patient was brought here by EMS. There is no report of fevers or chills. No nausea or vomiting. No diarrhea or constipation. The patient is from [facility]. He does have a history of dysphagia and aspiration in the past. No chest pain. No shortness of breath. PAST MEDICAL HISTORY: Hypertension; COPD; chronic respiratory failure; pneumonia; gastroesophageal reflux disease; paroxysmal atrial fibrillation, on chronic anticoagulation with Coumadin; dysphagia; cerebrovascular disease; obstructive sleep apnea, on CPAP; orthostatic hypotension; neutropenia; exogenous obesity; pulmonary embolism; degenerative osteoarthritis; posttraumatic stress disorder; schizophrenia; and vertebral compression fractures. PAST SURGICAL HISTORY: Epidural steroid injection, right knee arthroscopy, cholecystectomy, catheterization, back surgery, and right ankle surgery. SOCIAL HISTORY: The patient currently lives at [facility]. Denies any tobacco or alcohol use. ALLERGIES: AVELOX AND MOXIFLOXACIN. MEDICATIONS: PATIENT'S NAME: MELECIO DUMONT [facility] AGE: 66 Y [address] ROOM: [address] [address] LOCATION: GICU ADMIT DATE: 09/21/2016 ER/Outpatient Report DISCHARGE DATE: FAMILY PHYSICIAN: Bud Herr MD ATTENDING PHYSICIAN: Alonzo Lowe Please see list. REVIEW OF SYSTEMS: All systems are unable to be reviewed secondary to the patient's condition at this time. PHYSICAL EXAMINATION: VITAL SIGNS: Weight 108.8 kg. Blood pressure 57/38, pulse 88, respiratory rate 12, temperature 96.6, and oxygen saturation 90% on 15 L non-rebreather. GENERAL: The patient is a 66-year-old male who appears older than stated age. He does appear minimally responsive. He is only responsive to painful stimuli and does localize to pain. He does have sonorous respirations. HEENT: Normocephalic, atraumatic. Pupils are equal, round, and reactive to light. Extraocular motions are intact. Nares are patent bilaterally. Oropharynx: Edentulous. NECK: Supple. There is no nuchal rigidity. CARDIOVASCULAR: Regular rate and rhythm. LUNGS: Diminished diffusely with crackles noted at the left lung. ABDOMEN: Soft, nontender, and nondistended. No rebound, rigidity, or guarding. MUSCULOSKELETAL: The patient does have some movement of the right arm to pain. SKIN: The patient is in Unna boots. Otherwise, no other obvious rashes or lesions are noted. LABORATORY AND X-RAY DATA: Labs and x-rays are obtained. CBC: White blood cell count 16.4, platelets are 84 with 30% bands. PTT is 50, PT is 71.7, and INR is 6.7. CMP: Sodium 154, chloride 118, and creatinine 2.3. LFTs are normal. Cardiac enzymes are normal. ProBNP is 550. Chest x-ray shows left lobe pneumonia. The IJ catheter is okay. There is no evidence of pneumothorax. Arterial blood gas 7.34/47/136/27/-0.8. Lactate 3.0. Procalcitonin 36.42. Urinalysis shows 25 leukocyte esterase, 15 protein, and [address] scan of the brain shows old ischemia. No acute process. EKG is obtained, is interpreted by myself at 1016 hours, and shows sinus rhythm with a rate of 92, normal axis, normal interval. No ST elevation, ST depression, or T-wave inversions. IMPRESSION: 1. Septic shock. 2. Left lobar pneumonia. 3. Acute kidney injury. 4. Supratherapeutic INR. 5. Altered mental status due to septic shock and left lobar pneumonia. 6. Critical care time 34 minutes. 7. Initial visit. PATIENT'S NAME: MELECIO DUMONT [facility] AGE: 66 Y [address] ROOM: [place] [address] LOCATION: GICU ADMIT DATE: 09/21/2016 ER/Outpatient Report DISCHARGE DATE: FAMILY PHYSICIAN: Bud Herr MD ATTENDING PHYSICIAN: Alonzo Lowe EMERGENCY DEPARTMENT COURSE: The patient was brought back to the examination room. Seen immediately upon arrival by myself. The patient does have paperwork that reports no intubation, but full code. We have contacted the patient's daughter and discussed this with her. She reports that his wishes were to not be intubated long-term on a ventilator. With this, the patient's daughter does report the patient would be willing to be intubated if this was a potentially reversible cause, which this potentially may be. We did elect to intubate the patient. This was performed by myself. The patient was given 150 of ketamine and 10 mg of vecuronium for RSI. A 3-0 Mac blade was utilized for good vision of the cords. An 8.0 tube was passed through the cord. There was good end-tidal CO2 color change noted. Bilateral breath sounds. There are no sounds in the mid epigastric region. The patient was noted to have elevated white blood cell count with evidence of pneumonia on chest x-ray. Sepsis time 0 is documented as 0901 hours. The patient's blood pressure is very low. He is started on 30 mL/kg IV bolus of normal saline. Levophed drip is ordered. A triple-lumen central line is placed emergently. Consent was not able to be obtained due to the patient's severe septic shock and altered mental status. The right internal jugular was prepped sterilely and draped. Ultrasound was utilized for visualization. The right internal jugular was cannulated. There was no pulsatile flow noted. Dilated using Seldinger technique. Catheter was placed. There was good blood flow from all ports. Dressing was placed. Chest x-ray showed no evidence of complications or pneumothorax. A Askew was placed. Vancomycin 2 g IV was initiated as well as 4.5 g of Zosyn. I have discussed the results with the patient's daughter who is at the bedside. I have discussed the case with Dr. Lowe who is on-call for the Hospitalist Service. He has seen and evaluated the patient down here in the emergency department. He does agree to accept the patient for further evaluation, treatment, and management. The patient did require a cumulative critical care time of 34 minutes. This did include talking with family, talking with the consultants, ordering tests, reviewing tests, as well as close monitoring the patient with septic shock. DISPOSITION: The patient is admitted under the care of the Hospitalist Service in guarded condition. DO ANNAMARIA GORDON/shree PATIENT'S NAME: MELECIO DUMONT [facility] AGE: 66 Y [address] ROOM: [place] [address] LOCATION: [facility] ADMIT DATE: 09/21/2016 ER/Outpatient Report DISCHARGE DATE: FAMILY PHYSICIAN: Bud Herr MD ATTENDING PHYSICIAN: Alonzo Lowe /[id number] d: 09/21/16 1440 t: 09/27/16 1901, OUTPATIENT REPORT
--- NOTE | ~2016-09-21 | DS ---
PATIENT'S NAME: MELECIO DUMONT [facility] AGE: 66 Y [address] ROOM: [place] [address] [place]: [facility] ADMIT DATE: 09/21/2016 Discharge Summary DISCHARGE DATE: 10/02/2016 FAMILY PHYSICIAN: Bud Herr MD ATTENDING PHYSICIAN: Raheem Valentine SUMMARY PRINCIPAL DIAGNOSES: 1. . 2. Acute respiratory failure with hypoxia. 3. Aspiration pneumonia. 4. History of paroxysmal atrial fibrillation. 5. History of pulmonary embolism. 6. History of diastolic congestive heart failure. 7. Severe sepsis with shock. 8. Acute kidney injury on chronic kidney disease. HOSPITAL COURSE: This is a 66-year-old male with history of dysphagia, recurrent admissions for respiratory failure relating to aspiration pneumonia, who presented with septic shock picture with acute respiratory failure relating to another aspiration pneumonia. The patient was admitted to the ICU and intubated and was treated for septic shock appropriately. The patient had a lengthy ICU stay relating to his septic shock and respiratory failure. After several days of requiring mechanical ventilation support, the patient was not able to be weaned off the vent. After several discussions with the family, it was determined that the patient's wish would be to pursue aggressive measures such as tracheostomy. The patient was further monitored for a few days and was given a chance for recovery including multiple bronchoscopies, however, continued to be ventilator dependent, did not show significant improvement. At this time with the help of the Palliative Care team and family's agreement per the patient's wishes, the patient was extubated per compassionate extubation protocol in the ICU. The patient was given comfort care medications after that. The patient did not immediately pass and was slowly transferred to the medical floor. The patient while on comfort care, passed on 10/02/2016, two days after his compassionate extubation. Greater than 30 minutes were spent in discharge planning and facilitating. DISPOSITION: . PATIENT'S NAME: MELECIO DUMONT [facility] AGE: 66 Y [address] ROOM: [place] [address] [place] [facility] [place]MIT DATE: 09/21/2016 Discharge Summary DISCHARGE DATE: 10/02/2016 FAMILY PHYSICIAN: Bud Herr MD ATTENDING PHYSICIAN: Raheem Valentine MD BG/modl /[id number] d: 10/21/16 0357 t: 10/25/16 1350, DISCHARGE SUMMARY
--- NOTE | ~2016-09-21 | OR ---
PATIENT'S NAME: MELECIO DUMONT [facility] AGE: 66 Y [address] ROOM: [place] [address] LOCATION: GICU ADMIT DATE: 09/21/2016 OR/Procedure Report DISCHARGE DATE: FAMILY PHYSICIAN: Bud Herr MD ATTENDING PHYSICIAN: Alonzo Lowe SURGEON: Alexandra Garcia MD GLOBAL POSITION SYSTEM TECHNICIAN: DATE OF PROCEDURE: 09/28/2016 TIME: 12:30 p.m. PROCEDURE PERFORMED: Bronchoscopy. INDICATION: Acute hypercapnic and hypoxic respiratory failure secondary to pneumonia. PROCEDURE DETAILS: The bronchoscope was introduced through ETT up to she. The patient was sedated with 2 mg of Versed and 50 mcg of fentanyl. Appropriate consent was obtained from the family previous to the procedure. Systematic inspection was carried out up to the subsegmental level. Minimal amount of secretion was noted and there was no gross inflammation of the respiratory mucosa. Some dynamic airway collapsibility was noted particularly on the right side. Multiple pictures were taken which are to be placed in the patient's chart. Ventilator settings were adjusted. PEEP was decreased to 0 and FiO2 was placed, increased to 100%. The patient tolerated the procedure well. No immediate postprocedure complication was noted. MD SYDNEE COLON/shree /[id number] d: 09/28/16 1426 t: 10/05/16 1624, OPERATIVE SUMMARY
--- NOTE | ~2016-09-21 | CON ---
PATIENT'S NAME: MELECIO DUMONT [facility] AGE: 66 Y [address] ROOM: [place] [address] LOCATION: GICU ADMIT DATE: 09/21/2016 Consultation DISCHARGE DATE: FAMILY PHYSICIAN: Bud Herr MD ATTENDING PHYSICIAN: Alonzo Lowe DATE OF CONSULTATION: 09/21/2016 REFERRING PHYSICIAN: Nick Patel MD REFERRING: Dr. Lowe. REASON FOR REFERRAL: Critical care and respiratory management. HISTORY OF PRESENT ILLNESS: The patient is a 66-year-old resident of a long term. He was found unresponsive but with a pulse. He was brought to the emergency room where a chest x-ray revealed a left-sided pneumonia. He was in acute hypercapnic hypoxemic respiratory failure and intubated. PAST MEDICAL HISTORY: Please refer to the medical records. He is unable to give any at this time. FAMILY HISTORY: Unobtainable. SOCIAL HISTORY: Unobtainable. REVIEW OF SYSTEMS: Unobtainable. PHYSICAL EXAMINATION: GENERAL: Intubated, sedated on mechanical ventilation. ENT: Unremarkable. NECK: Normal. CHEST: Hyperinflated. LUNGS: Expiratory rhonchi. HEART: Regular. ABDOMEN: Soft. EXTREMITIES: No clubbing or edema. ASSESSMENT: 1. Acute respiratory failure secondary to pneumonia. PATIENT'S NAME: MELECIO DUMONT [facility] AGE: 66 Y [address] ROOM: [place] [address] LOCATION: GICU ADMIT DATE: 09/21/2016 Consultation DISCHARGE DATE: FAMILY PHYSICIAN: Bud Herr MD ATTENDING PHYSICIAN: Alonzo Lowe 2. Septic shock. PLAN: Continue current regimen. We will assist in ventilator and critical care management. MD MARYAM ALBERTO/modl /[id number] d: 09/21/162124 t: 09/22/16 1303, CONSULTATION REPORT
--- NOTE | ~2016-09-21 | NDGEN ---
PATIENT'S NAME: MELECIO DUMONT [facility] AGE: 66 Y [address] ROOM: [address] [address] LOCATION: [facility] ADMIT DATE: 09/21/2016 Neurodiagnostics DISCHARGE DATE: FAMILY PHYSICIAN: Bud Herr MD ATTENDING PHYSICIAN: Alonzo Lowe PROCEDURE: ELECTROENCEPHALOGRAM DATE OF PROCEDURE: 09/25/2016 TIME: 11:40 a.m. This is a very poor study due to the patient having reported tremors of his bilateral upper extremities. This was a 20-lead EEG which was done with the patient who was reported to be poorly responsive just for the demographics. INDICATIONS: This is a 66-year-old male patient who came in from a senior living with sepsis associated with a pneumonia. He was poorly responsive at the time of this EEG. He had his eyes closed and was having tremors in his bilateral upper extremities. Due to the extensive background movement, it was difficult to get a good background rhythm, however, in the right frontal lead which was best analyzed for a background rhythm, a 7 hertz slow background rhythm was seen and remained stable throughout the whole recording. There was extensive rhythmic activity that did not appear to be seizure-genic but appeared to be very much consistent with tremoring of the limbs. At no time did I notice any epileptiform features and no seizures were recorded. IMPRESSION: Abnormally slow background rhythm of around 6-7 hertz, but the background rhythm was significantly obscured by excessive rhythmic tremoring of the limbs. There was no evidence of any epileptiform features seen and no seizures were recorded. MD HECTOR LUCAS/shree /[id number] dtt: 10/31/16 1512 , LUKE REYES dtd: 09/25/16 1805
--- NOTE | ~2016-09-21 | CON ---
PATIENT'S NAME: MELECIO DUMONT [facility] AGE: 66 Y [address] ROOM: [place] [address] LOCATION: GICU ADMIT DATE: 09/21/2016 Consultation DISCHARGE DATE: FAMILY PHYSICIAN: Bud Herr MD ATTENDING PHYSICIAN: Alonzo Lowe DATE OF CONSULTATION: 09/21/2016 REFERRING PHYSICIAN: Simon Lowe MD This is a palliative care referral for discussion on code status. HISTORY OF PRESENT ILLNESS: This 66-year-old male was admitted on 09/21 with severe sepsis, septic shock, and acute hypoxic respiratory failure. He had been in the hospital recently in February of this year with aspiration pneumonia. He has a long-standing history of atrial fib, long-term coagulation with warfarin, diabetes mellitus type 2, chronic dysphagia. He had been in the jail past 4 years and has not been ambulatory since for the past 6 months per daughter. Daughter states the patient has been declining, does not talk a lot, is in bed a lot, and sleeps a lot. He was transferred to [facility] and was found to have hypoxemia and pneumonia. He was intubated in the emergency room and was started on antibiotics. He is now in the ICU and ventilated. No sedation. The patient is unresponsive. No moaning or grimacing. Unresponsive. Code status was changed to full code in the ER and the patient was ventilated. PAST MEDICAL HISTORY: Chronic hypoxic respiratory failure, history of pulmonary embolism on long- term anticoagulation, paroxysmal atrial fibrillation, morbid obesity, obstructive sleep apnea, history of cerebrovascular accident, residual cognitive impairment and immobility, posttraumatic stress disorder, history of schizophrenia, osteoarthritis with chronic pain syndrome. ALLERGIES: MOXIFLOXACIN. HOME MEDICATIONS: 1. Coumadin daily. 2. Vitamin B12 1000 mcg IM every month. 3. Folate 1 mg daily. 4. Fosamax 70 mg every week. 5. Potassium 30 mEq daily. 6. MiraLAX 17 g daily. 7. Paxil 20 mg p.o. daily. 8. Pravastatin 80 mg daily. PATIENT'S NAME: MELECIO DUMONT [facility] AGE: 66 Y [address] ROOM: [place] [address] LOCATION: GICU ADMIT DATE: 09/21/2016 Consultation DISCHARGE DATE: FAMILY PHYSICIAN: Bud Herr MD ATTENDING PHYSICIAN: Alonzo Lowe 9. Terazosin 2 mg daily. 10. Prednisone 2.5 mg daily. 11. Remeron 30 mg p.o. daily. 12. Metoprolol ER 25 mg daily. 13. Vitamin D3 5000 units daily. 14. Artificial Tears p.r.n. 15. Fludrocortisone 0.5 mg p.o. b.i.d. 16. Prilosec 20 mg daily. 17. Risperidone 1 mg b.i.d. 18. Alprazolam 0.5 mg b.i.d. 19. Gabapentin 30 mg p.o. t.i.d. 20. Calcium with vitamin D 500/200 t.i.d. 21. Dulcolax 10 mg suppository per rectum p.r.n. constipation. 22. DuoNeb q.i.d. 23. Hydrocortisone cream 1% topically daily p.r.n. 24. Milk of magnesia 30 mL p.r.n. 25. Percocet 10/325 mg every 6 hours p.r.n. 26. Clotrimazole cream topically to feet daily. FAMILY HISTORY: Father at age 80 of congestive heart failure. Mother at age 75, unknown cause. Sister has cancer, unknown. PAST SURGICAL HISTORY: Right knee arthroscopy, cholecystectomy, right ankle surgery, heart catheterization, back surgery, and ORIF of left hip. SOCIAL HISTORY: The patient has been living at the jail [facility] for the past 4 years, nonambulatory, needs to be fed. He is , has 2 daughters. One is 20 years old, Tricia Dumont and a younger sister. He was a smoker of 50 pack per year history, quit about years ago. No significant alcohol use; was a [place] . REVIEW OF SYSTEMS: A complete review of systems is done and is negative except as mentioned in HPI. PHYSICAL EXAMINATION: GENERAL: This is an unresponsive, ventilated 66-year-old male appears older than stated age, no acute distress. VITAL SIGNS: Pulse 87, respirations 18, blood pressure 102/75, on FiO2 of 40%. BMI of 27.7. SKIN: Warm and dry. Color pale. HEENT: Head: Normocephalic and atraumatic. Sclerae nonicteric. PATIENT'S NAME: MELECIO DUMONT [facility] AGE: 66 Y [address] ROOM: [id number] [place], [place] [address] LOCATION: [facility] ADMIT DATE: 09/21/2016 Consultation DISCHARGE DATE: FAMILY PHYSICIAN: Bud Herr MD ATTENDING PHYSICIAN: Alonzo Lowe Conjunctivae are pale, pink. Mouth is pink. ET tube in place. LYMPH: No cervical adenopathy or thyromegaly. RESPIRATORY: Coarse diminished bilateral clavicles, increased on left. ABDOMEN: Obese. No hepatosplenomegaly. Positive bowel tones. AND RECTAL: Not done. EXTREMITIES: 1+ edema. No cyanosis. NEURO: Sedated, following commands. Palliative performance scale is 10%, totally bed-bound, unable to do any activity, total care, mouth care only, drowsy. IMPRESSION: Altered mental status, acute respiratory failure. PLAN: Discussion of chronic condition and code status and goals of care. Met with daughter, Tricia Dumont who is the medical power of senior trial attorney. She has a fairly good understanding of the patient's overall condition and declining over the past few months. Discussed code status and the patient's wishes, values, and goals. The patient had told his ex- recently that he just wanted to . He has been sleeping more, and not eating. Daughter had changed code status because she was concerned that he did not really understand when he had agreed to a no code in the past. Reviewed benefits, burdens of code status, gave a handout on CPR with chronic morbid conditions, answered questions and concerns on code status. I also gave a copy of the POLST, Physician's Order for Life-Sustaining Treatment form and explained form. Copy of advance directive is on the chart, naming Tricia and ex- Yesenia Olmos as medical power of attorneys.Discussed with all comorbities and patient's wish not to be resusitated. It may not be a benefit to do CPR and put on ventilator. GOALS OF CARE: 1. Continue aggressive care in full code at this time. 2. Think about code status and talk with other medical power of senior trial attorney. 3. Hopefully, the patient can wake up more and we can discuss the patient's wishes if he would get off the vent. Answered fears and concerns. Emotional support given to daughter. Encouraged to call if any questions. Education done on goals of care, code status, condition, and dysphagia. Spiritual needs. Personal docket specialist had been up earlier in visit with patient and family. Thank you for allowing me to assist with this patient and family. Total time was 65 minutes. PATIENT'S NAME: MELECIO DUMONT [facility] AGE: 66 Y [address] ROOM: [place] [address] LOCATION: [facility] ADMIT DATE: 09/21/2016 Consultation DISCHARGE DATE: FAMILY PHYSICIAN: Bud Herr MD ATTENDING PHYSICIAN: Alonzo Lowe PERFECTO PALUMBO NP FOR MD ZACK SON/shree /[id number] d: 09/21/162221 t: 10/06/16 1618, CONSULTATION REPORT
--- NOTE | ~2016-09-21 | HP ---
PATIENT'S NAME: OG DUMONT [facility] AGE: 66 Y [address] ROOM: [place] [address] LOCATION: GICU ADMIT DATE: 09/21/2016 History & Physical DISCHARGE DATE: FAMILY PHYSICIAN: Bud Herr MD ATTENDING PHYSICIAN: Silva Lowe DATE OF SERVICE: CHIEF COMPLAINT: Severe sepsis with septic shock and acute hypoxic respiratory failure. HISTORY OF PRESENTING ILLNESS: This 66-year-old white male with a long-standing history of atrial fibrillation, on long-term anticoagulation with warfarin, diabetes mellitus type 2, and chronic dysphagia, was transferred to [facility] this morning with unresponsiveness. He was found to have significant hypoxemia. His preliminary evaluation revealed the presence of a large pneumonia. He had subsequently been intubated in the emergency room. Additionally, a central line was placed and broad-spectrum antibiotic therapy has been initiated per the sepsis pathway. On my arrival, he was sedated and mechanically ventilated. History was gathered from the emergency room staff and the available chart information. I did also speak to his daughter who related that he has been doing well for several weeks. She relates that he seems to be getting progressively more lethargic and debilitated. She is concerned that he has not been eating or drinking well. She also believes that he has been recurrently aspirating and does not take water because he does not like the thickening agent. He does however continue to think independently and essentially makes his own medical decisions. Although, he had previously been regarded as DNI status. His daughter reflects this was only in the instance that he had an irreversible illness. She requested to continue with aggressive medical measures. ALLERGIES: MOXIFLOXACIN. ILLNESSES: 1. Chronic hypoxic respiratory failure. 2. History of pulmonary embolism on long-term anticoagulation with warfarin. 3. Paroxysmal atrial fibrillation. 4. Morbid obesity. 5. Obstructive sleep apnea. 6. 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 7. Posttraumatic stress disorder. 8. History of schizophrenia. PATIENT'S NAME: OG DUMONT [facility] AGE: 66 Y [address] ROOM: [place] [address] LOCATION: GICU ADMIT DATE: 09/21/2016 History & Physical DISCHARGE DATE: FAMILY PHYSICIAN: Bud Herr MD ATTENDING PHYSICIAN: Silva Lowe 9. Osteoarthritis with chronic pain syndrome. CURRENT MEDICATIONS: 1. Coumadin daily. 2. Vitamin B12 1000 mcg IM every month. 3. Folate 1 mg p.o. daily. 4. Fosamax 70 mg p.o. every week. 5. Potassium 30 mEq p.o. daily. 6. MiraLAX 17 g p.o. daily. 7. Paxil 20 mg p.o. daily. 8. Pravastatin 80 mg p.o. daily. 9. Terazosin 2 mg p.o. daily. 10. Prednisone 2.5 mg p.o. daily. 11. Remeron 30 mg p.o. daily. 12. Metoprolol ER 25 mg p.o. daily. 13. Vitamin D3 5000 units p.o. daily. 14. Artificial Tears p.r.n. 15. Fludrocortisone 0.1 mg p.o. b.i.d. 16. Prilosec 20 mg p.o. daily. 17. Risperidone 1 mg p.o. b.i.d. 18. Alprazolam 0.5 mg p.o. b.i.d. 19. Gabapentin 300 mg p.o. t.i.d. 20. Calcium with vitamin D 500/200 one tab p.o. t.i.d. 21. Dulcolax 10 mg CA daily p.r.n. 22. DuoNeb q.i.d. 23. Hydrocortisone cream 1% applied topically daily p.r.n. 24. Milk of magnesia 30 mL p.o. daily p.r.n. 25. Percocet 10/325 half tablet p.o. q.6 hours p.r.n. pain. 26. Clotrimazole cream applied topically to the feet daily p.r.n. FAMILY HISTORY: Significant for congestive heart failure in his father who at the age of 80. Mother at 75 from an unknown cause. SOCIAL HISTORY: He is and currently lives in a nursing facility here in [place]. He has a 50-pack year history of smoking tobacco, but has been quit for about 8 years. There is no significant history of alcohol use. REVIEW OF SYSTEMS: As per HPI. All other organ systems reviewed and are negative. OBJECTIVELY: VITAL SIGNS: Temperature 96.6, pulse 91, respirations 14, blood pressure 90/61, O2 saturation 98% on 100% FiO2. PATIENT'S NAME: OG DUMONT [facility] AGE: 66 Y [address] ROOM: [id number] [place], [place] [address] LOCATION: [facility] ADMIT DATE: 09/21/2016 History & Physical DISCHARGE DATE: FAMILY PHYSICIAN: Bud Herr MD ATTENDING PHYSICIAN: Silva Lowe GENERAL: He is ill appearing, lying on the examination table. Sedated, but partially responsive. He does not open eyes or follow any commands. SKIN: Supple, pink, warm, and dry. There is a small skin tear over the left upper arm, but no other skin rashes. He has a small ulcerated area over the left great toe without any complicating features. HEENT: Otherwise, normocephalic. Sclerae nonicteric. Pupils are 2-3 mm, slow to react to light. Nasal turbinates normal in appearance. Oropharynx clear. Mucous membranes are pink and moist. The ET tube is in place. NECK: Supple. Plethoric and obese. No masses or adenopathy. No thyromegaly. No JVD. CHEST: Wall is symmetrical. HEART: Regular with a grade 2/3 systolic ejection murmur. LUNGS: Coarse and diminished with basilar crackles bilaterally, left greater than right. There are some scattered end-expiratory wheezes. ABDOMEN: Soft, morbidly obese. No masses or hepatosplenomegaly. Bowel sounds are present. AND RECTAL: Not done. EXTREMITIES: Display trace pitting edema. No cyanosis. NEUROLOGICALLY: Sedated, but moves all extremities equally and spontaneously. LABORATORY AND X-RAY DATA: Chest x-ray shows bilateral infiltrates with significant evidence for pneumonia in the mid left and lower lung. CT scan of the head is negative for any acute intracranial process. CBC showed a white blood cell count elevated at 16.4, hemoglobin is 12.8, hematocrit 41.3, platelets 84. Chemistries revealed BUN and creatinine of 19 and 2.3 respectively, sodium and potassium 154 and 3.8, chloride and CO2 118 and 29, calcium is 9.4, AST and ALT 14 and 15, bilirubin 1.5, glucose was 103. PT and PTT 71.7 and 50 respectively with an INR of 6.7. Urinalysis grossly unremarkable except for 50-100 RBCs. Procalcitonin was significantly elevated at 36.42, lactate was 3.0. ABGs were pH 7.34, pCO2 47, pO2 136. Cardiac enzymes revealed a proBNP of 550, troponin I of less than 0.04. Blood cultures pending. ASSESSMENT AND PLAN: 1. Severe sepsis with septic shock. He got a fluid challenge in the emergency room. He has been started on pressor support with Levophed. We will continue with aggressive supportive cares. We will transfer him to the ICU and follow the sepsis pathway. Continue with IV fluid hydration therapy, broad-spectrum antibiotic therapy, and pressor support. We will follow up on cultures when they are known. Pneumonia appears to be the primary focus of infection. 2. Acute on chronic hypoxic respiratory failure with suspected pneumonia. We will treat with broad-spectrum antibiotic therapy as above. Continue with mechanical ventilation. Encourage good pulmonary hygiene. 3. Dysphagia with recurrent aspiration. I did discuss the possibility of PATIENT'S NAME: OG DUMONT [facility] AGE: 66 Y [address] ROOM: [place] [address] LOCATION: [facility] ADMIT DATE: 09/21/2016 History & Physical DISCHARGE DATE: FAMILY PHYSICIAN: Bud Herr MD ATTENDING PHYSICIAN: Silva Lowe feeding tube with the patient's daughter and she expressed interest in that. We will manage the sepsis and pneumonia aggressively as above and request speech therapy to evaluate. Depending on his progress, we will revisit the possibility of feeding tube options with her, once his condition has improved. 4. Acute kidney injury secondary to sepsis. Continue with aggressive fluid hydration therapy as above. 5. Hypernatremia. We will continue with normal saline for now, but repeat a sodium again later today, and adjust his IV fluid therapy depending on the trend. I suspect he may be intravascularly volume deplete. 6. Pulmonary embolism on long-term anticoagulation with warfarin. There is also a documented history of paroxysmal atrial fibrillation. He is supratherapeutic. We will hold warfarin for now and follow the PT/INR serially. 7. Diabetes mellitus type 2. We will manage with Accu-Cheks and sliding scale insulin. 8. Cerebrovascular accident by history. He is chronically debilitated. We will continue with supportive cares and restorative cares. He might benefit from some physical therapy, occupational therapy depending on his clinical progress as above. There is no evidence for acute stroke. We will continue to manage his multiple medical risk factors carefully. 9. Morbid obesity. We will need to work on some long-term strategies for weight loss including increased exercise etc. We will need to also work on balanced dietary intake. 10. Moderate protein-calorie malnutrition. Balanced dietary intake as above. We will need to discuss options for feeding depending on his progress. 11. Essential hypertension. We will hold the oral antihypertensive regimen for now and monitor. 12. Post-traumatic stress disorder. With history of schizophrenia. Symptoms are generally controlled with SSRI therapy and risperidone. We will continue to monitor and follow up. Og has historically made his own decisions; however, his daughter, Calli, is power of burr sander. 13. Deep venous thrombosis prophylaxis. He is fully anticoagulated. We will continue to monitor PT/INR. Total time spent 60 minutes of which 60 minutes is critical care time. SILVA LOWE MD AJSarah/shree PATIENT'S NAME: OG DUMONT [facility] AGE: 66 Y [address] ROOM: [place] [address] LOCATION: GICU ADMIT DATE: 09/21/2016 History & Physical DISCHARGE DATE: FAMILY PHYSICIAN: Bud Herr MD ATTENDING PHYSICIAN: Silva Lowe /[id number] D: [id number] T: [id number] HISTORY & PHYSICAL
--- NOTE | ~2016-09-21 | OR ---
PATIENT'S NAME: MELECIO DUMONT [facility] AGE: 66 Y [address] ROOM: [address] [address] LOCATION: GICU ADMIT DATE: 09/21/2016 OR/Procedure Report DISCHARGE DATE: FAMILY PHYSICIAN: Bud Herr MD ATTENDING PHYSICIAN: Alonzo Lowe SURGEON: Konstantin Hernandez MD RAILWAY YARD ASSISTANT: DATE OF PROCEDURE: 09/24/2016 PROCEDURE PERFORMED: Bronchoscopy. PREOPERATIVE DIAGNOSES: 1. Increasing atelectasis in the bases on chest x-ray with MRSA pneumonia, evaluated with ventilator management at this time. 2. Respiratory distress. HISTORY: After the patient was given a total of 1 mg of Haldol and he is on Precedex at this time at 0.5, he is given 50 of fentanyl. Signed consent was placed in the chart after discussing with his daughter the risks, benefits, and complications of the procedure. POSTOPERATIVE DIAGNOSES: 1. Distal airway appeared to have no endobronchial lesions. 2. Minimal amount of secretions. 3. Fiery red, erythematous airway and characteristic of a possible viral versus severe bronchitis. 4. No endobronchial lesions distally in the endotracheal tube which is located 3 cm above the main tracheal she. DESCRIPTION OF PROCEDURE: After the patient was adequately sedated and in the semi-upright position, bronchoscopy was performed through the existing endotracheal tube, #[address] We were able to place the traditional bronchoscope with eyepiece. Following this, we were then able to evaluate the distal airway itself, using about 75 to 100 mL of saline. We were able to lavage the airway after inspecting the airway itself showing this fiery red left and right mainstem bronchi and distally into the airway. Careful inspection of the right upper, middle, and lower lobe, left upper lingula and lower lobe were carried out, subsegmental orifices, after we lavaged the area with saline. This was sent for appropriate cultures, either viral, sloughing of the airway was fairly obvious and suggested more of a CMV, HSV like picture. Discussion was made with the possibility of starting acyclovir at this time as well as the vancomycin for the MRSA which had been cultured out 2 days ago. Discharged in satisfactory condition. No evidence of pneumothorax is seen clinically. PATIENT'S NAME: MELECIO DUMONT [facility] AGE: 66 Y [address] ROOM: [place] [address] LOCATION: GICU ADMIT DATE: 09/21/2016 OR/Procedure Report DISCHARGE DATE: FAMILY PHYSICIAN: Bud Herr MD ATTENDING PHYSICIAN: Alonzo Lowe J H MD ERIN HERNANDEZ/shree /[id number] d: t: 09/25/16 09, OPERATIVE SUMMARY
--- NOTE | ~2016-09-21 | CON ---
PATIENT'S NAME: OG DUMONT [facility] AGE: 66 Y [address] ROOM: [address] [address] LOCATION: GICU ADMIT DATE: 09/21/2016 Consultation DISCHARGE DATE: FAMILY PHYSICIAN: Bud Herr MD ATTENDING PHYSICIAN: Alonzo Lowe REFERRING PHYSICIAN: Nick Patel MD CHIEF COMPLAINT: Asked to evaluate the patient with abnormal coagulation studies and concern for DIC. HISTORY OF PRESENT ILLNESS: Og Dumont is a 66-year-old gentleman with multiple comorbidities who was admitted on 09/21/2016 with severe sepsis, septic shock, acute hypoxic respiratory failure. He has been intubated and antibiotics administered including Zosyn, Levaquin, and vancomycin, and during his hospital stay, he is noted to have abnormal coagulation studies including PT of 71.7 and an INR of 6.7 on admission with a PTT of 50. During the early course of his hospital stay, 6 hours later, his PT and INR were 132.7 and 12.32 respectively. FFP and vitamin K 5 mg IV was administered, and most recently, his PT and INR were 18.2 and 1.12 respectively at 12:25 this afternoon. He does take Coumadin chronically for atrial fibrillation and is a resident in a shelter. Because of the abnormal coag study this morning and last night, we are asked to evaluate the patient with a question of DIC. He did have additional laboratory this morning including a fibrinogen which was 473, haptoglobin of 42, D-dimer of 0.32 which was normal. The patient is currently intubated, arousable, does nod his head and look around spontaneously but further review of systems unable to be obtained. PAST MEDICAL HISTORY: Includes history of PE, on long-term anticoagulation and history of atrial fibrillation as well. Morbid obesity. He has obstructive sleep apnea. He has had a cerebrovascular accident with residual cognitive impairment and immobility. He has PTSD, history of schizophrenia, osteoarthritis with chronic pain syndrome. ALLERGIES: TO MOXIFLOXACIN. MEDICATIONS: Home medications include, 1. Coumadin. 2. Vitamin B12 monthly. 3. Folate. 4. Fosamax. 5. Potassium. PATIENT'S NAME: OG DUMONT [facility] AGE: 66 Y [address] ROOM: [place] [address] LOCATION: [facility] ADMIT DATE: 09/21/2016 Consultation DISCHARGE DATE: FAMILY PHYSICIAN: Bud Herr MD ATTENDING PHYSICIAN: Alonzo Lowe 6. MiraLAX. 7. Paxil. 8. Pravastatin. 9. Terazosin. 10. Prednisone 2.5 mg daily. 11. Remeron. 12. Metoprolol. 13. Vitamin D3. 14. Artificial Tears. 15. Fludrocortisone 0.5 mg p.o. b.i.d. 16. Prilosec. 17. Risperidone. 18. Alprazolam. 19. Gabapentin. 20. Calcium with vitamin D. 21. Dulcolax. 22. DuoNeb. 23. Hydrocortisone cream. 24. Milk of magnesia. 25. Percocet. 26. Clotrimazole cream. Inpatient medications are pertinent for, 1. Zosyn. 2. Vancomycin. 3. Levaquin. FAMILY HISTORY: Obtained from the chart, but it is pertinent for father passing at age 80 with CHF, mother passed at 75 of unknown cause, and a sister had an unknown cancer. PAST SURGICAL HISTORY: Includes right knee arthroscopy, cholecystectomy, right ankle surgery, heart catheterization, back surgery, and an ORIF of the left hip. SOCIAL HISTORY: The patient is a resident in shelter at [facility] for the past 4 years. He is not ambulatory and needs assistance with eating. He is and has two daughters. He does not smoke currently but has a history of smoking approximately 50-pack years and no significant alcohol use. He is a [place] . REVIEW OF SYSTEMS: Unable to be obtained. PHYSICAL EXAMINATION: PATIENT'S NAME: OG DUMONT [facility] AGE: 66 Y [address] ROOM: [address] [address] LOCATION: GICU ADMIT DATE: 09/21/2016 Consultation DISCHARGE DATE: FAMILY PHYSICIAN: Bud Herr MD ATTENDING PHYSICIAN: Alonzo Lowe VITAL SIGNS: Blood pressure 119/71, respirations 19, pulse 78, temperature 98.2. GENERAL: The patient appears quite comfortable, resting, in no apparent distress, intubated, opens his eyes and look around and nods appropriately. HEENT: Pupils are equal, round, and reactive to light. Extraocular muscles are intact. Oral mucosa is intubated, difficult to see but no ulcerations in the anterior mouth. NECK: Without adenopathy as is the axillary region. HEART: Regular rate and rhythm without murmurs, rubs, or gallops. LUNGS: Relatively clear anteriorly without wheezing, without rhonchi. ABDOMEN: Bowel sounds positive. He is obese. Difficult exam but no gross organomegaly is noted. EXTREMITIES: He does have multiple ecchymoses of the upper extremities. No significant lower extremity edema. LABORATORY DATA: Coag studies are as noted above. Additionally, CBC with a white blood cell count on admission of 16.4 with a left shift with a bandemia of 30%. His hemoglobin was 12.8 and platelets were 84,000. His electrolytes were notable for sodium of 154, potassium 3.8, chloride 118, bicarb 29, BUN and creatinine of 19 and 2.3 respectively. IMPRESSION AND PLAN: Og Dumont is a 66-year-old gentleman with multiple comorbidities, admitted with sepsis and acute respiratory failure, intubated and found to have coagulopathy during his hospital stay. He is on chronic Coumadin, and over the course of his 24 hours in the hospital, his PT and PTT have increased and subsequently have decreased closer to normal. His fibrinogen is normal as is the D-dimer and a PTT and a PT 1:1 mix had been performed with some improvement with the 1:1 mix suggesting a factor deficiency more than disseminated intravascular coagulation. Additionally, the fact that the coagulation studies have near normalized at this point argue against ongoing consumptive process. He did receive vitamin K 5 mg IV this morning which should help replace factors as the day progresses. He also received FFP, the FFP's half-life would be 4 to 6 hours and sometimes worsening of the coagulation studies may occur until the liver is able to synthesize factors as the day progresses. So ongoing monitoring of his PT and PTT is quite reasonable with supplemental FFP as needed for any bleeding or significant abnormalities in the coag studies. What I expect is that as the course of the next 6 to 12 hours progress, his coagulation study should normalize due to the vitamin K supplementation and liver synthetic function. PATIENT'S NAME: OG DUMONT [facility] AGE: 66 Y [address] ROOM: [place] [address] LOCATION: [facility] ADMIT DATE: 09/21/2016 Consultation DISCHARGE DATE: FAMILY PHYSICIAN: Bud Herr MD ATTENDING PHYSICIAN: Alonzo Lowe MD NJH/shree /[id number] d: 09/22/16 2339 t: 09/26/16 1251, CONSULTATION REPORT
[~2016-09-21 08:26] MED LIST changes: -BOOST BREEZE237 ML PO; -LOTRIMIN30 GM TOP; -NEURONTIN300 MG PO; -TRIACET 0.1% 8080 GM TOP
[2016-09-21 08:59] LABS: HEMATOCRIT 41.3 % (37.0-53.0); HEMOGLOBIN 12.8 g/dL (11.0-16.0); MCH 32.4 pg (27.0-34.0); MPV 12.6 fl (9.4-12.4); RBC 3.95 M/uL (3.50-5.50)
[2016-09-21 09:01] LABS: MCV 104.6 fl (83.0-98.0); PLATELET COUNT 84 K/uL (150-450); RDW-CV 15.8 % (11.9-14.6); WBC 16.4 K/uL (4.0-11.0)
[2016-09-21 09:19] LABS: ALBUMIN 2.3 gm/dL (3.5-5.0); ALK PHOS 61 IU/L (33-138); ALT 15 IU/L (12-78); AST 14 IU/L (10-40); BLOOD UREA NITROGEN 19 mg/dL (6-24); CALCIUM 9.4 mg/dL (8.5-10.5); CO2 29 mMol/L (22-32); CPK 34 IU/L (35-332); POTASSIUM 3.8 mMol/L (3.7-5.1); TOTAL BILIRUBIN 1.5 mg/dL (0.0-1.5); TOTAL PROTEIN 5.7 g/dL (6.0-8.4)
[2016-09-21 09:20] LABS: ANION GAP 10.8 (10.0-19.0); CHLORIDE 118 mMol/L (96-110); CREATININE 2.3 mg/dL (0.6-1.3); SODIUM 154 mMol/L (135-145)
[2016-09-21 09:21] LABS: PROTIME 71.7 SECONDS (9.8-11.4); PTT 50 SECONDS (25-32)
[2016-09-21 09:31] LABS: ABSOLUTE NEUTROPHIL CT (ANC) 14.4 K/uL (1.4-9.0); BANDED NEUTROPHIL # 4.9 K/uL (0.0-0.1); BANDED NEUTROPHILS % 30 %; LYMPHOCYTE # 0.7 K/uL (0.8-4.0); LYMPHOCYTE % 4 %; SEGMENTED NEUTROPHIL # 9.5 K/uL (1.4-9.0); SEGMENTED NEUTROPHIL % 58 %
[2016-09-21 09:31] LABS: BICARBONATE 25.4 mmol/L (18.0-23.0); PCO2 47 mmHg (35-45); PO2 136 mmHg (80-90)
[2016-09-21 09:44] LABS: BLOOD URINE 150 /UL (NEGATIVE); GLUCOSE URINE NEGATIVE (NEGATIVE); KETONE URINE NEGATIVE (NEGATIVE); LEUKOCYTES URINE 25 /UL (NEGATIVE); NITRITE URINE NEGATIVE (NEGATIVE); PROTEIN URINE 15 mg/dL (NEGATIVE); SPEC GRAVITY URINE 1.015 (1.003-1.035); TURBIDITY URINE CLEAR (CLEAR); UROBILINOGEN URINE 8 mg/dL (NORMAL)
[2016-09-21 09:48] LABS: COLOR URINE AMBER (YELLOW)
[2016-09-21 09:58] LABS: BACTERIA URINE FEW (NEGATIVE); RBC URINE 50-100 #/HPF (NEGATIVE); WBC URINE 0-2 #/HPF (NEGATIVE)
[2016-09-21 09:59] LABS: AMORPHOUS URINE 1+ (NEGATIVE); MUCUS URINE 2+ (NEGATIVE); YEAST URINE FEW (NEGATIVE)
[2016-09-21] MEDS ORDERED: COUMADIN ** IA3 MG PO (11:37)
[2016-09-21 11:51] LABS: BICARBONATE 25.2 mmol/L (18.0-23.0); LACTATE 2.7 mEq/L (0.50-1.60); PCO2 50 mmHg (35-45)
[2016-09-21 11:52] LABS: PO2 66 mmHg (80-90)
[2016-09-21] MEDS ORDERED: BOOST BREEZE237 ML PO (11:53)
[2016-09-21] MEDS ORDERED: NEURONTIN300 MG PO (11:55)
[2016-09-21] MEDS ORDERED: TRIACET 0.1% 8080 GM TOP (11:59)
[2016-09-21] MEDS ORDERED: LOTRIMIN30 GM TOP (12:02)
[2016-09-21 12:50] LABS: BICARBONATE 25.6 mmol/L (18.0-23.0); PCO2 52 mmHg (35-45); PO2 60 mmHg (80-90)
[2016-09-21 15:37] LABS: CALCIUM 8.2 mg/dL (8.5-10.5); POTASSIUM 3.7 mMol/L (3.7-5.1)
[2016-09-21 15:38] LABS: ANION GAP 10.7 (10.0-19.0)
--- NOTE | 2016-09-21 18:03 | NUR ---
Significant Event: Patient arrived to floor at 1035 intubated and with central line. Patient does not withdraw to painful stimuli, occassional spontaneous movement of RUE. Patient's eyes do not open. Pupils equal and brisk. Levophed to keep MAP greater than 65, currently at 0.14 mcg/kg/min. 2L NS given in ER, 500ml BS bolus given x2 in ICU. Askew intact with poor UOP. OG tube placed to LIS. Lung sounds diminished on L) side. Copious hopkins secretions cleared by oral and in-line suctioning. Currently on hydrocortisone gtt. No sedation since intubation. Follow up: Continue to monitor UOP, neurologic status
[2016-09-21 20:41] LABS: BICARBONATE 22.2 mmol/L (18.0-23.0); PCO2 32 mmHg (35-45); PO2 77 mmHg (80-90)
--- NOTE | 2016-09-22 04:24 | NUR ---
RR decreased to 18 last night. FiO2 continues at 40%, EtCO2 23-28. BrSs diminished bases, slightly coarse at times. Suctioned moderate amounts of thick, yellow/blood-tinged secretions from ETT. Has received a couple of pushes of sedation this shift to breathe with ventilator better. Continue per plan of care.
[2016-09-22 04:25] LABS: PCO2 31 mmHg (35-45); PO2 65 mmHg (80-90)
[2016-09-22 05:12] LABS: BASOPHIL % 0.1 %; HEMATOCRIT 34.3 % (37.0-53.0); HEMOGLOBIN 11.1 g/dL (11.0-16.0); IMMATURE GRANULOCYTE # 0.4 K/uL (0.0-0.3); IMMATURE GRANULOCYTE % 3.8 %; LYMPHOCYTE # 0.5 K/uL (0.8-4.0); LYMPHOCYTE % 5.1 %; MCH 32.8 pg (27.0-34.0); MCHC 32.4 gm/dL (32.0-36.5); MCV 101.5 fl (83.0-98.0); MONOCYTE # 0.4 K/uL (0.0-1.0); MONOCYTE % 4.2 %; MPV 11.9 fl (9.4-12.4); NEUTROPHIL # (ANC) 9.1 K/uL (1.4-9.0); NEUTROPHIL % 86.8 %; NRBC % 0 /100WBC (0-0.00); PLATELET COUNT 71 K/uL (150-450); RBC 3.38 M/uL (3.50-5.50); RDW-CV 15.5 % (11.9-14.6); WBC 10.5 K/uL (4.0-11.0)
[2016-09-22 05:23] LABS: CREATININE 1.7 mg/dL (0.6-1.3); POTASSIUM 3.8 mMol/L (3.7-5.1)
[2016-09-22 05:25] LABS: ANION GAP 11.8 (10.0-19.0); PHOSPHORUS 1.5 mg/dL (2.5-4.9)
--- NOTE | 2016-09-22 05:30 | NUR ---
Significant Event: PT VSS, TRACE EDEMA IN THE LOWER EXTREMETIES, AFEBRILE, LS CLEAR AND DIMISHED, OCCASIONALLY COARSE ON THE RIGHT UPPER LOBE, RR DECREASED TO 18. WEAVED LEVOPHED TO 0.06 MCG/KG/MIN. WILL FOLLOW COMMAND AND HAS EQUAL STRENGTH ON UPPER EXTREMETIES. ADMINISTERED VERSED X3 TO HELP WITH STACKING BREATHS. OG TO LIS, 50MLS OUT. CARRION HAD MARGINAL UOP WITH A TOTAL OF 450ML OUT. BM X1 LIQUID NOT ABLE TO GET STOOL SAMPLE. BATH COMPLETE. Follow up: NEED A STOOL SAMPLE FOR C-DIFF. WEAN LEVOPHED.
[2016-09-22 05:41] LABS: PROTIME 132.7 SECONDS (9.8-11.4)
[2016-09-22 05:43] LABS: INR - (THERAPEUTIC) 12.32 (0.92-1.07)
[2016-09-22 06:32] LABS: TOTAL BILIRUBIN 1.4 mg/dL (0.0-1.5)
[2016-09-22 06:33] LABS: ALBUMIN 1.9 gm/dL (3.5-5.0); TOTAL PROTEIN 4.9 g/dL (6.0-8.4)
[2016-09-22 06:51] LABS: ABSOLUTE NEUTROPHIL CT (ANC) 9.6 K/uL (1.4-9.0); BANDED NEUTROPHIL # 1.8 K/uL (0.0-0.1); BANDED NEUTROPHILS % 17 %; LYMPHOCYTE # 0.4 K/uL (0.8-4.0); LYMPHOCYTE % 4 %; MONOCYTE # 0.2 K/uL (0.0-1.0); SEGMENTED NEUTROPHIL # 7.8 K/uL (1.4-9.0); SEGMENTED NEUTROPHIL % 74 %
--- NOTE | 2016-09-22 12:40 | NUR ---
Pt is a resident at [facility]. Will assist back when ready.
[2016-09-22 12:47] LABS: INR - (THERAPEUTIC) 1.72 (0.92-1.07); PROTIME 18.2 SECONDS (9.8-11.4)
--- NOTE | 2016-09-22 18:32 | NUR ---
SIGNIFICANT EVENT: PATIENT ALERT, NODS YES/NO APPROPRIATELY. OPENS EYES SPONT AND TO VOICE. PUPILS EQUAL AND REACTIVE. MOVES ALL 4 EXTREMTIIES SPOTANEOUSLY AND TO COMMANDS. R) UPPER EXTREMITY SLIGHTLY WEAKER THAN L) UPPER EXTREMITY AT TIMES. GENERALIZED WEAKNESS NOTED. PATIENT NODS NO TO NUMBNESS, TINGLING, OR PAIN. PATIENT HAS BEEN IN SINUS RHYTHM, HR 70-80S. PULSES PALPABLE THROUGHOUT. EDEMA PRESENT. LEVOPHED WEANED TO OFF. BP STABLE, SBP 120-130S, MAP>65. IV FLUIDS CHANGED TO D5 1/2 NS AT 100ML/HR. AFEBRILE. PATIENT CONTINUES TO REQUIRE VENT SUPPORT, A/C MODE FIO2 40%. OVER BREATHS VENT SETTINGS ETCO2 MID 20S. BOWEL SOUNDS PRESENT, TUBE FEEDING STARTED THIS SHIFT, OSMOLITE AT 40ML, NO RESIDUALS. NO BM THIS SHIFT. CARRION INTACT, ADEQUATE URINE OUTPUT. NO NEW SKIN ISSUES NOTED. R) IJ, NO COMPLAICATIONS. FOLLOW UP: CONTINUE TO MONITOR
[2016-09-22 20:56] LABS: PROTIME 13.9 SECONDS (9.8-11.4)
[2016-09-22 20:57] LABS: INR - (THERAPEUTIC) 1.32 (0.92-1.07)
[2016-09-23 04:00] LABS: BICARBONATE 22.6 mmol/L (18.0-23.0); PCO2 34 mmHg (35-45); PO2 79 mmHg (80-90)
--- NOTE | 2016-09-23 04:17 | NUR ---
Patient's vent settings have remained the same through out shift. FiO2 has been weaned to 30% with saturations still in the high 90's. End tidal has been 23-26. Breath sounds mostly clear and diminished but sometimes coarse. Suctioning small to moderate amounts of thick, yellow/blood tinged sputum. Will continue to monitor patient.
[2016-09-23 04:19] LABS: HEMOGLOBIN 9.9 g/dL (11.0-16.0); MCH 33.1 pg (27.0-34.0); MCV 100.3 fl (83.0-98.0); MPV 11.3 fl (9.4-12.4); RBC 2.99 M/uL (3.50-5.50); RDW-CV 14.9 % (11.9-14.6); WBC 4.5 K/uL (4.0-11.0)
[2016-09-23 04:20] LABS: PLATELET COUNT 44 K/uL (150-450)
[2016-09-23 04:27] LABS: INR - (THERAPEUTIC) 1.17 (0.92-1.07); PROTIME 12.3 SECONDS (9.8-11.4)
[2016-09-23 04:38] LABS: ALBUMIN 2.1 gm/dL (3.5-5.0); CALCIUM 8.1 mg/dL (8.5-10.5); CREATININE 1.3 mg/dL (0.6-1.3); TOTAL PROTEIN 5.2 g/dL (6.0-8.4)
[2016-09-23 04:39] LABS: ANION GAP 10.7 (10.0-19.0); POTASSIUM 2.7 mMol/L (3.7-5.1); TOTAL BILIRUBIN 0.9 mg/dL (0.0-1.5)
[2016-09-23 04:53] LABS: ABSOLUTE NEUTROPHIL CT (ANC) 4.1 K/uL (1.4-9.0); BANDED NEUTROPHIL # 0.1 K/uL (0.0-0.1); BANDED NEUTROPHILS % 2 %; LYMPHOCYTE # 0.2 K/uL (0.8-4.0); LYMPHOCYTE % 5 %; MONOCYTE # 0.1 K/uL (0.0-1.0); SEGMENTED NEUTROPHIL # 4.1 K/uL (1.4-9.0); SEGMENTED NEUTROPHIL % 90 %
--- NOTE | 2016-09-23 06:00 | NUR ---
Significant Event: PATIENT ALERT, FOLLOWS COMMANDS. WEAK THROUGHOUT. CONTINUES OFF OF LEVOPHED GTT. AFEBRILE. CONINUES ON VENT A/C 18/600/5/30%. SUCTIONING COPIOUS THICK ORAL SECRETIONS WITH THICK SPUTUM. ETCO2'S 26-30. OGT WITH TF AT GOAL 75ML/HR LOW RESIDUALS. CARRION WITH GOOD UOP. LARGE LOOSE INCONTINENT STOOL THIS AM. SAMPLE SENT FOR CDIFF SAMPLING. RIGHT IJ TRIPLE LUMEN WITH D51/2NS AT 100ML/HR. PIV TO LEFT INNER WRIST. CHECKING Q4HR NA LEVELS. FAMILY AT BEDSIDE AT BEGINNING OF SHIFT, EXPRESSED UNHAPPY WITH CURRENT INTERMEDIATE STATUS. Follow up: MONITOR NA LEVEL, REPLACING 60MEQ KCL PER CENTRAL LINE
[2016-09-23 08:52] LABS: INR - (THERAPEUTIC) 1.14 (0.92-1.07)
[2016-09-23 09:10] LABS: MAGNESIUM 1.8 mg/dL (1.8-2.6)
[2016-09-23 09:13] LABS: PHOSPHORUS 0.5 mg/dL (2.5-4.9)
[2016-09-23 12:15] LABS: CALCIUM 8.4 mg/dL (8.5-10.5); CREATININE 1.1 mg/dL (0.6-1.3); POTASSIUM 3.6 mMol/L (3.7-5.1)
[2016-09-23 12:23] LABS: ANION GAP 8.6 (10.0-19.0)
--- NOTE | 2016-09-23 16:21 | NUR ---
Significant Event: Patient is alert and follows commands. Opens eyes spontaenously and to voice. Moves all extremities spontaneously and to command. Patient remains intubated. Mode A/C, FIO2 30%. Large amounts of thick secretions. Versed pushes prn. SR with rates 70s-80s. SBP 120s-140s. D5 1/2 NS discontinued. 200ml water flushes q4h through OG tube started. Vancomycin and Levaquin discontinued. Askew intact with adequate UOP. 1 LG BM. Follow up: Wean vent, keep patient comfortable
--- NOTE | 2016-09-23 17:11 | NUR ---
D: RESPIRATORY FAILURE I: V2OO, ALBUTEROL UD R: BREATH SOUNDS SLIGHTLY COARSE TO DIMINISHED AND CLEAR, SXN-MODERATE TO LARGE THICK YELLOW, ET TUBE SECURE, CUFF AT MINIMAL OCCLUSIVE PRESSURE, IN CPAP 5/ PS 8, TOLERATES WELL, NIF -27, VC- [id number] P: CONTINUE TO WEAN OFF VENTILATOR
[2016-09-24 03:45] LABS: BICARBONATE 25.3 mmol/L (18.0-23.0); PCO2 34 mmHg (35-45); PO2 94 mmHg (80-90)
--- NOTE | 2016-09-24 04:18 | NUR ---
Patient's vent settings and FiO2 remained the same through out the shift. On 30% FiO2, patient's saturations have been in the 90's. Coarse at times. Started the shift suctioning small amounts of pink frothy but now suctioning thick blood tinged/yellow. Will continue to monitor.
[2016-09-24 04:53] LABS: ALBUMIN 2.3 gm/dL (3.5-5.0); CALCIUM 8.7 mg/dL (8.5-10.5); MAGNESIUM 2.1 mg/dL (1.8-2.6); PHOSPHORUS 1.6 mg/dL (2.5-4.9); TOTAL BILIRUBIN 0.6 mg/dL (0.0-1.5); TOTAL PROTEIN 5.7 g/dL (6.0-8.4)
[2016-09-24 04:54] LABS: HEMATOCRIT 31.9 % (37.0-53.0); HEMOGLOBIN 10.7 g/dL (11.0-16.0); MCHC 33.5 gm/dL (32.0-36.5); MCV 98.5 fl (83.0-98.0); MPV 12.1 fl (9.4-12.4); RBC 3.24 M/uL (3.50-5.50); RDW-CV 14.7 % (11.9-14.6); WBC 4.1 K/uL (4.0-11.0)
[2016-09-24 04:56] LABS: PLATELET COUNT 47 K/uL (150-450)
[2016-09-24 05:02] LABS: INR - (THERAPEUTIC) 1.08 (0.92-1.07); PROTIME 11.4 SECONDS (9.8-11.4)
[2016-09-24 05:22] LABS: ABSOLUTE NEUTROPHIL CT (ANC) 3.5 K/uL (1.4-9.0); BANDED NEUTROPHIL # 0.5 K/uL (0.0-0.1); BANDED NEUTROPHILS % 12 %; LYMPHOCYTE # 0.5 K/uL (0.8-4.0); LYMPHOCYTE % 11 %; MONOCYTE # 0.1 K/uL (0.0-1.0); SEGMENTED NEUTROPHIL % 74 %
--- NOTE | 2016-09-24 05:36 | NUR ---
Significant Event: Follow up: patient intubated, attempted to pull out et tube, restraints ordered, moves upper extremities x2, wiggles toes ascencio in place, bath x1 sheet change x2, hypertensive, breathing above vent setting,
--- NOTE | 2016-09-24 14:59 | NUR ---
Significant Event: Patient remains intubted and sedeated on precedex at 0.5mcg/kg/h. Resting but awakens easily and follows all comands. Nods head appropriately. When initially opens eyes bialteral eyes are deviated up and to the left but but become midline when talk to him and tracks appropriately,MD aware. Bronchoscopy done today. Slightly coarse-clear, more diminished on the left side. SPO2>96%. Isolation today at 0755, contact for MRSA in sputum. SR -SB with HR 50-60. SBP 116-170's. Afebrile. Active bowel sounds. No BM. OGT. Changed TF to Osmolite 1 at goal rate of 70ml/h. Max residual 40ml. PRN fentanyl and haldol given with Bronch. Acyclovir,VAnco, Rocephin started today. Replaced 40meq KCL and 40meg khos. D5 started and running at 200ml/h. Accuchecks q4h, treated x2. serum NA lels q12h: 4,16. Did not wean today,d/t outcome of bronch, rested today.Dr. Perez consulted today.Askew clear yellow UOP,200-650/h. Follow up: Continue to monitor NA.
[2016-09-25 03:57] LABS: ALBUMIN 2.3 gm/dL (3.5-5.0); ALK PHOS 58 IU/L (33-138); ALT 16 IU/L (12-78); ANION GAP 9.2 (10.0-19.0); AST 11 IU/L (10-40); BLOOD UREA NITROGEN 11 mg/dL (6-24); CALCIUM 8.7 mg/dL (8.5-10.5); CHLORIDE 108 mMol/L (96-110); CO2 28 mMol/L (22-32); CREATININE 0.8 mg/dL (0.6-1.3); MAGNESIUM 1.8 mg/dL (1.8-2.6); POTASSIUM 3.2 mMol/L (3.7-5.1); SODIUM 142 mMol/L (135-145); TOTAL BILIRUBIN 0.5 mg/dL (0.0-1.5); TOTAL PROTEIN 5.7 g/dL (6.0-8.4)
[2016-09-25 03:58] LABS: PHOSPHORUS 1.9 mg/dL (2.5-4.9)
[2016-09-25 04:02] LABS: HEMATOCRIT 32.7 % (37.0-53.0); HEMOGLOBIN 10.8 g/dL (11.0-16.0); MCH 31.6 pg (27.0-34.0); MCV 95.6 fl (83.0-98.0); MPV 11.6 fl (9.4-12.4); RBC 3.42 M/uL (3.50-5.50); RDW-CV 14.3 % (11.9-14.6); WBC 4.1 K/uL (4.0-11.0)
[2016-09-25 04:06] LABS: PLATELET COUNT 46 K/uL (150-450)
[2016-09-25 04:07] LABS: INR - (THERAPEUTIC) 1.06 (0.92-1.07); PROTIME 11.1 SECONDS (9.8-11.4)
[2016-09-25 04:40] LABS: ABSOLUTE NEUTROPHIL CT (ANC) 3.7 K/uL (1.4-9.0); BANDED NEUTROPHIL # 0.4 K/uL (0.0-0.1); BANDED NEUTROPHILS % 10 %; LYMPHOCYTE # 0.4 K/uL (0.8-4.0); LYMPHOCYTE % 9 %; SEGMENTED NEUTROPHIL # 3.3 K/uL (1.4-9.0); SEGMENTED NEUTROPHIL % 80 %
[2016-09-25 04:42] LABS: BICARBONATE 27.4 mmol/L (18.0-23.0); PCO2 32 mmHg (35-45); PO2 85 mmHg (80-90)
--- NOTE | 2016-09-25 05:39 | NUR ---
Significant Event: Follow up: PATIENT NODS APPROPRIATELY, INTUBATED SATED BETWEEN 90-98%, HEART RATE 60-110, SYSTOLIC BP 100-160, BATH COMPLETED, CARRION IN PLACE CARRION CARE COMPLETED, RESTED MOST OF THE NIGHT, FOLLOWS COMMANDS
--- NOTE | 2016-09-25 10:54 | NUR ---
A - NUTRITION F/U. ON VENT. K+ 3.2, GLU 158, BUN/ETHYLENE OXIDE PANELBOARD OPERATOR 11/0.8, ALB 2.3. PT W/ 1+ EDEMA TO FEET/ANKLES. OSMOLITE 1.0 AT 70 ML/HR 1680 KCALS, 74 GM PROTEIN, 1414 ML FREE H20. D5 AT 100 ML/HR. FLUSHES 250 ML H20 EVERY 4 HRS. TOTAL FREE H20 = 5314 ML; DISCUSSED W/ MD, DS WILL BE DECREASED PENDING F/U NA+ THIS AFTERNOON. PT REMAINS IN (-) FLUID BALANCE. EST NEEDS: 2245-4034 KCALS, 109-131 GM PROTEIN, 1 ML/KCAL FLUIDS. D - AT RISK W/ DIFFICULTY SWALLOWING R/T RELIANCE ON VENT. I - GOAL: TO MEET NEEDS VIA EN. M/E - REC INCREASING TF TO 100 ML/HR = 2400 KCALS, 106 GM PROTEIN, 2020 ML FREE H20. RECS WRITTEN IN CHART AND RELAYED TO MD. WILL F/U IN 2-3 DAYS.
--- NOTE | 2016-09-25 14:51 | NUR ---
I did update Ellie at [facility]. I also spoke with Denisse with pallative care. Plan to have a meeting maybe Sunday of this week. Family not in room and are working per Denisse.
--- NOTE | 2016-09-25 16:52 | NUR ---
Pt on ventilator support t/o shift. CPAP trials completed [id number] and [id number]. Pt tolerated CPAP 5/PS 8. Continued on 40% Fio2. Lung sounds occ slightly coarse uppers cleared with sxn small white thick with spont cough from Pt. Clear/diminished post sxn. Forehead probe position changed q2h. Will continue with CPAP trials in AM
--- NOTE | 2016-09-25 16:54 | NUR ---
Significant Event: Patient remains intubated on precedex at 0.7mcg/kg/h. Opens eyes and follows commands. When initially open eyes they are deviated up and to the right but when call his name they become midline and track. Follows all commands. Have had periods of more pronounced tremoring. EEG done today. Dr. Burr consulted. SR-ST HR 60-112. SBP 120-170's. Afebrile. Lungs asculated clear/diminished to slightly coarse. In CPAP since shortly after 1200, tolerating well. Active bowel sounds, no BM. Osmolte 1.0 continues at 70ml/h,goal. Minimal residual.Askew patent UOP clear [id number], Dr Perez aware, 1600 NA+level was 142, continue.Na+ lab draws q12h.Accuchecks q4h, did not treat. PRN haldol given x2, prn fentanyl givenx1. Follow up:Continue, family will reevaluate on Sunday if unable to extubate. Dr. Stubbs talked with daughter Tricia over telephone today.
[2016-09-26 04:05] LABS: INR - (THERAPEUTIC) 1.08 (0.92-1.07); PROTIME 11.4 SECONDS (9.8-11.4)
[2016-09-26 04:34] LABS: BICARBONATE 31.8 mmol/L (18.0-23.0); PO2 79 mmHg (80-90)
[2016-09-26 04:36] LABS: PCO2 39 mmHg (35-45)
--- NOTE | 2016-09-26 04:58 | NUR ---
Significant Event: Follow up: patient intubated and sedated, precedex 0.7mg/kg/hr, central line dressing change, has tremors while awake, bath and pericare completed, restrained due to previous attempts at self extubation
--- NOTE | 2016-09-26 05:04 | NUR ---
No vent changes this shift. EtCO2 25-27. BrSs diminished bases, suctioned small amount of thick, cream colored secretions from ETT. Continues on precedex, CPAP trials again today.
[2016-09-26 10:44] LABS: BASOPHIL % 0.2 %; HEMATOCRIT 32.3 % (37.0-53.0); HEMOGLOBIN 11.1 g/dL (11.0-16.0); IMMATURE GRANULOCYTE # 0.2 K/uL (0.0-0.3); IMMATURE GRANULOCYTE % 4.2 %; LYMPHOCYTE # 0.6 K/uL (0.8-4.0); LYMPHOCYTE % 14.6 %; MCH 32.4 pg (27.0-34.0); MCHC 34.4 gm/dL (32.0-36.5); MCV 94.2 fl (83.0-98.0); MONOCYTE # 0.3 K/uL (0.0-1.0); MPV 12.1 fl (9.4-12.4); NEUTROPHIL # (ANC) 3.1 K/uL (1.4-9.0); NRBC % 0 /100WBC (0-0.00); RBC 3.43 M/uL (3.50-5.50); WBC 4.3 K/uL (4.0-11.0)
[2016-09-26 10:45] LABS: PLATELET COUNT 46 K/uL (150-450)
[2016-09-26 10:58] LABS: ALBUMIN 2.3 gm/dL (3.5-5.0); BLOOD UREA NITROGEN 11 mg/dL (6-24); CALCIUM 9.1 mg/dL (8.5-10.5); CHLORIDE 106 mMol/L (96-110); CO2 27 mMol/L (22-32); CREATININE 0.7 mg/dL (0.6-1.3); PHOSPHORUS 3.2 mg/dL (2.5-4.9); SODIUM 142 mMol/L (135-145)
[2016-09-26 11:06] LABS: ALBUMIN 2.3 gm/dL (3.5-5.0); ALK PHOS 61 IU/L (33-138); ALT 17 IU/L (12-78); ANION GAP 9.4 (10.0-19.0); AST 11 IU/L (10-40); BLOOD UREA NITROGEN 10 mg/dL (6-24); CALCIUM 9.1 mg/dL (8.5-10.5); CHLORIDE 105 mMol/L (96-110); CO2 29 mMol/L (22-32); CREATININE 0.6 mg/dL (0.6-1.3); POTASSIUM 3.4 mMol/L (3.7-5.1); SODIUM 140 mMol/L (135-145); TOTAL BILIRUBIN 0.4 mg/dL (0.0-1.5); TOTAL PROTEIN 5.6 g/dL (6.0-8.4)
--- NOTE | 2016-09-26 16:07 | NUR ---
Changed to CPAP 5/PS 8 around start of shift. Tolerated well t/o shift. Lung sounds clear/diminished uppers, more diminished bases. Sxn small thick cream with strong cough from Pt. Increased Fio2 to 40% to maintain sats>90% after PICC line placement. Will continue to monitor and CPAP trials in AM
[2016-09-26 16:28] LABS: ALBUMIN 2.3 gm/dL (3.5-5.0); ANION GAP 11.3 (10.0-19.0); BLOOD UREA NITROGEN 11 mg/dL (6-24); CHLORIDE 103 mMol/L (96-110); CO2 28 mMol/L (22-32); CREATININE 0.7 mg/dL (0.6-1.3); PHOSPHORUS 3.6 mg/dL (2.5-4.9); POTASSIUM 3.3 mMol/L (3.7-5.1); SODIUM 139 mMol/L (135-145)
--- NOTE | 2016-09-26 16:49 | NUR ---
SIGNIFICANT EVENT: PATIENT ON PRECEDEX AT 0.7 MCG/KG/MIN. PATIENT OPENS EYES SPONTANEOUSLY AND TO VOICE. PUPILS EQUAL AND REACTIVE. PATIENT NODS YES/NO APPROPRIATELY. PATIENT NODS NO TO NUMBNESS, TINGLING, OR PAIN. PATIETN MOVES ALL 4 EXTREMITIETS SPONTANEOUSLY AND TO COMMANDS. EQUAL STRENGTH THROUGHOUT. GENREALIZED WEAKNESS. PATIENT HAS BEEN IN SINUS RHYTHM, MARTÍN INTO THE 50S AT TIMES. PULSES PALPABLE THROUGHOUT. BP STABLE. AFEBRILE. EDEMA PRESENT. PATIENT CONTINUES TO REQUIRE VENT SUPPORT. CPAP MODE, 40% FIO2, RR 16-20S, TV 500S, PEEP 5, PSV 8. ETCO2 UPPER 20S. SPONT/INDUCED COUGH. BOWEL SOUNDS PRESENT, NO BM. OG INFUSING OSMO AT 70ML/HR, NO RESIDUALS. WATER FLUSHED INCREASED TO 250 ML Q 6 HOURS. CARRION INTACT, ADEQUATE URINE OUTPUT. NO NEW SKIN ISSUES NOTED. REPOSITIONED EVERY 2 HOURS. R) PICC PLACED TOADY, OKAY TO USE. NO COMPLICATIONS. INFUSING PRECEDEX AT 0.7 MCG/KG/MIN. FOLLOW UP: FAMILY MEETING IN AM, WEAN PRECEDEX IN AM.
[2016-09-27 04:28] LABS: ALBUMIN 2.4 gm/dL (3.5-5.0); ANION GAP 12.5 (10.0-19.0); CALCIUM 9.5 mg/dL (8.5-10.5); CREATININE 0.9 mg/dL (0.6-1.3); POTASSIUM 3.5 mMol/L (3.7-5.1); TOTAL PROTEIN 5.5 g/dL (6.0-8.4)
[2016-09-27 04:30] LABS: HEMATOCRIT 32.1 % (37.0-53.0); HEMOGLOBIN 11.1 g/dL (11.0-16.0); MCHC 34.6 gm/dL (32.0-36.5); MCV 95.5 fl (83.0-98.0); MPV 12.2 fl (9.4-12.4); PLATELET COUNT 51 K/uL (150-450); RBC 3.36 M/uL (3.50-5.50); RDW-CV 14.2 % (11.9-14.6); WBC 5.5 K/uL (4.0-11.0)
[2016-09-27 04:34] LABS: BICARBONATE 29.8 mmol/L (18.0-23.0); PCO2 46 mmHg (35-45); PO2 89 mmHg (80-90)
[2016-09-27 04:36] LABS: INR - (THERAPEUTIC) 1.08 (0.92-1.07); PROTIME 11.3 SECONDS (9.8-11.4)
--- NOTE | 2016-09-27 04:41 | NUR ---
Significant Event: PATIENT HAVING TREMORS THROUGHOUT SHIFT, HALDOL/FENTANYL GIVEN FOR TREMORS. DURING TREMOR EPSIODES PTS HR'S 120'S-140'S. RR'S 30'S-40'S. SBP 150'S-170'S. PRECEDEX CURRENTLY AT 0.6MCG/KG/MIN, UNABLE TO TITRATE DOWN DUE TO TREMORS. HR'S WHILE RESTING 80'S-90'S. TMAX 100.4. FAN PLACED ON PATIENT. AC MODE. 40% FIO2. 2 EXTRA LARGE LOOSE BM'S, FLEXISEAL PLACED. Follow up: CONTINUE TO MONITOR. FAMILY MEETING AT 10AM.
--- NOTE | 2016-09-27 05:03 | NUR ---
Vent mode changed back to AC at beginning of shift. Continues on 40% FiO2, PEEP of 5. He has had multiple episodes of RR 35-40, tremors, and high pressuring on ventilator. BrSs diminished t/o, suctioned small amounts of yellow, thick secretions from ETT. Continue to monitor, family meeting.
[2016-09-27 05:47] LABS: ABSOLUTE NEUTROPHIL CT (ANC) 3.9 K/uL (1.4-9.0); LYMPHOCYTE # 0.8 K/uL (0.8-4.0); LYMPHOCYTE % 15 %; MONOCYTE # 0.6 K/uL (0.0-1.0); SEGMENTED NEUTROPHIL # 3.9 K/uL (1.4-9.0); SEGMENTED NEUTROPHIL % 71 %
--- NOTE | 2016-09-27 13:02 | NUR ---
Family meeting this am. I did introduce myself and role of care management to ex and daughter the POA. They had some questions regarding [facility] and holding the bed becasue they are pay $190 a day and [facility]. I explained I can not tell them what to do and they state finances are tight and non existent. I asked about [place] and he does not have. I also touched base that if no [facility] may need to look farther away like [facility], or [facility]. THey understand and also asked about a trach. I explained with that they will need to look at [place] with Eugene or Suzanne. His ex does not think he will return or he will just pass. Daughter then got upset and we spoke outside the room. She states she dose not want the trach and does not think her daughters do but it is difficult. HE has been living at [facility] for over 4 years unable to feed himself, walk, dress himself, etc. I then asked about his quality vs his quanity and ex does understand. I also mentioned extubating with the intent of not reintubating as well. She stated her and her daughters talked about this as well. I did give her my card and will continue to follow.
--- NOTE | 2016-09-27 14:57 | NUR ---
A - NUTRITION FOLLOW-UP VENT, SEDATED W/ PRECEDEX-OFF THIS MORNING FOR FAMILY MEETING WITH MD. DECIDED TO CONTINUE WITH CARE/TREATMENT. POSSIBLE EXTUBATE THIS SUNDAY. FAMILY STILL DECIDING ON PEG. FLEXISEAL. LABS: K+ 3.5, ALB 2.4 MEDS: VANCO, HALDOL, SOLUCORTEF, REMERON DIET: TF W/ OSMOLITE 1.0 AT 70ML/HR WITH 150ML WATER FLUSHES EVERY 6HR, PROVIDING 1781 KCAL, 74 GRAMS PROTEIN, 1415 ML FREE WATER. TOLERATING WELL PER RN. NO D5 RUNNING AT THIS TIME. EST NEEDS: 6694-9055 KCAL, 109-131 GRAMS PROTEIN, FLUID NEEDS: 1ML/KCAL D - INADEQUATE ORAL INTAKE RELATED TO INABILITY TO FEED ORALLY EVIDENCED BY VENT/SEDATION AND NEED FOR ENTERAL NUTRITION. I - RECOMMEND TO INCREASE TF RATE TO 100ML/HR TO PROVIDE 2400 KCAL, 106 GRAMS PROTEIN, 2020ML FREE WATER. M/E - GOAL: PT WILL CONTINUE TO TOLERATE ENTERAL NUTRITION AND MEET >75% OF NEEDS VIA MOST APPROPRIATE ROUTE IN 2-4 DAYS. PLAN: 1) CONTINUE TO FOLLOW TF TOLERANCE/ADVANCEMENT AND POC.
[2016-09-27 15:59] LABS: ALBUMIN 2.6 gm/dL (3.5-5.0); ANION GAP 9.1 (10.0-19.0); CALCIUM 9.5 mg/dL (8.5-10.5); PHOSPHORUS 2.8 mg/dL (2.5-4.9); POTASSIUM 4.1 mMol/L (3.7-5.1)
--- NOTE | 2016-09-27 16:26 | NUR ---
Pt continued on vent support, changed to CPAP 5/PS 8 this morning, tolerated well. Around 0800 Pt had increased respiratory rate 35-45 during tremor/anxiety episode. Returned back to A/C mode, remained in A/C t/o rest of shift. Attempted an afternoon CPAP trial with no success, again RR increased to 35-45, decreased TVs. Sxn small-moderate thick cream/white with spont weak cough. Lung sounds more diminished bases. Will continue to monitor and wean as tolerated
--- NOTE | 2016-09-27 19:08 | NUR ---
Significant Event: Patient remains on A/C venilated breathing with episodes of tachycardia and tachypnea with tremors. Patient is off levo. Remains on precedex for mild sedation. Anxious episodes are being treated with halidol and fent. Family has agreed to continue with full medical care. Follow up: Bronchospcopy is scheduled for tomorrow.
--- NOTE | 2016-09-28 02:50 | NUR ---
FiO2 decreased to 30% this shift. EtCO2 27-32. BrSs diminished, slightly coarse. Suctioned small amounts of thick, cream colored secretions from ETT. Continues to have episodes of tremors, with RR 29-38. Continue per plan of care.
[2016-09-28 04:26] LABS: BICARBONATE 29.1 mmol/L (18.0-23.0); PCO2 31 mmHg (35-45); PO2 87 mmHg (80-90)
[2016-09-28 05:01] LABS: INR - (THERAPEUTIC) 1.08 (0.92-1.07); PROTIME 11.3 SECONDS (9.8-11.4)
[2016-09-28 05:07] LABS: ALBUMIN 2.2 gm/dL (3.5-5.0); ANION GAP 9.3 (10.0-19.0); CALCIUM 9.1 mg/dL (8.5-10.5); CREATININE 0.9 mg/dL (0.6-1.3); PHOSPHORUS 2.1 mg/dL (2.5-4.9); POTASSIUM 3.3 mMol/L (3.7-5.1)
--- NOTE | 2016-09-28 05:30 | NUR ---
Significant Event: Pt is sedated with Precedex. Opens eyes to pain. Not tracking. Withdraws slightly in all four extremities. Pt is having tremors thoughout this shift. Does not follow any commands. Pupils are equal and reactive. Pt has been is on Levo gtt to keep Maps greater than 65. Pt continue on the Vent in A/C. Pt has a flexi seal in place with minimal output this shift. Askew cath in place with large urine output. R) PICC in place. Follow up: Possible extubation on Sunday.
--- NOTE | 2016-09-28 16:56 | NUR ---
Significant Event: PT remains sedated on precedex at 0.3. Vented at 30%. Bronch done this shift. Percocet x2 given, some relief with tremors. Askew patent. Flexiseal patent. Nystatin to groin, Aloe to bottom. Repositioned frequently. NS bolus 1000ml given this shift. R)upper arm PICC patent. Tube feeding running at 70ml/hr, minimal residual, 150ml water flush q6h. Follow up:
[2016-09-28 19:49] LABS: ALBUMIN 2.4 gm/dL (3.5-5.0); ANION GAP 10.3 (10.0-19.0); CALCIUM 9.1 mg/dL (8.5-10.5); PHOSPHORUS 2.8 mg/dL (2.5-4.9); POTASSIUM 4.3 mMol/L (3.7-5.1)
[2016-09-29 03:45] LABS: PCO2 38 mmHg (35-45); PO2 55 mmHg (80-90)
--- NOTE | 2016-09-29 05:49 | NUR ---
Patient remained in AC through out the night. CPAP was trialed from 0525 until 0540. Patient's respiratory rate increased from low 30's to upper 30's. Also, stopped trial because patient has had issues with blood pressure through out the night and vasopressors have been increased and decreased through out the shift. Patient's respiratory effort also increased while in CPAP. Breath sounds have been mostly clear and diminished through out shift. Suctioning small alounts of thick cream. Will continue to monitor.
--- NOTE | 2016-09-29 05:58 | NUR ---
Significant Event: Patient reamins sedated on precedex at 0.2mcg/kg/hr. Opens eyes to pain. Not tracking. No withdraw in all extremities. Patient has tremors throughout shift. Pupils 2.0 and brisk. Pressures very labile throughout shift. On and off levophed to keep MAPs > 65. Right upper arm PICC. Tube feeding at 70ml/hr with Q6 hour flushes 150ml. Residuals of 5 throughout shift. Askew patent draining yellow urine. Did not tolerate CPAP this am. Flexiseal intact with minimal drainage. Follow up: Family to make decision on plan of care.
--- NOTE | 2016-09-29 10:55 | NUR ---
A-NUTRITION F/U ON THE VENT; ON PRECEDEX. DID NOT TOLERATE CPAP TRIALS THIS AM; PLANNING ON TRYING CPAP AGAIN LATER THIS AFTERNOON. 8/3 BRONCH. (+)BM; (+)BS. MIN. RESIDUALS FROM TF; 0-5 ML. LABS: NA 139, K+ 4.3, LGU 95, BUN 12, SOCIAL WORK JOB TITLES 1.0, ALB 2.4 MEDS: ZOSYN DIET RX: NPO; 70 ML/HR OSMOLITE 1.0 (PROVIDING 1781 KCALS, 74 GM PROTEIN, 1415 ML FREE WATER) W/150 ML WATER FLUSHES Q6HRS. EST NUTR NEEDS: 5891-3313 KCALS AND 109-131 GM PROTIEN. CURRENT TF MEETING 82% OF THE LOW END OF KCAL NEEDS AND 68% OF THE LOW END OF PROTEIN NEEDS. RECOMMENDATIONS MADE TO INCREASE TF TO 100 ML/HR. D-AT NUTRITION RISK W/INADEQUATE ORAL INTAKE R/T DIFF. SWALLOWING AEB VENT SUPPORT, NEED FOR ENTERAL NUTRITION. I-RECOMMEND INCREASING TF TO 100 ML/HR; THIS WILL PROVIDE 2400 KCALS, 106 GM PROTEIN, AND 2020 ML FREE WATER M/E-GOAL: TF TO MEET >/=75% OF PT'S NUTRIENT NEEDS 1)F/U TF AND POC IN 3-5 DAYS 2)ASSIST NEEDED
--- NOTE | 2016-09-29 12:17 | NUR ---
ST recommend D/C ST evaluation order at this time 2/2 patient cont's intubation and unable to participate in ST evaluation. ST recommend consult for cognitive/linguistics and swallow evalation along with Modified Barium Swallow Study following extubation.
[2016-09-29 14:12] LABS: ALBUMIN 2.7 gm/dL (3.5-5.0); ANION GAP 11.2 (10.0-19.0); CALCIUM 9.6 mg/dL (8.5-10.5); CREATININE 1.2 mg/dL (0.6-1.3); MAGNESIUM 2.1 mg/dL (1.8-2.6); POTASSIUM 4.2 mMol/L (3.7-5.1); TOTAL BILIRUBIN 1.1 mg/dL (0.0-1.5); TOTAL PROTEIN 6.1 g/dL (6.0-8.4)
[2016-09-29 14:23] LABS: EOSINOPHIL % 0.2 %; HEMATOCRIT 30.3 % (37.0-53.0); HEMOGLOBIN 10.4 g/dL (11.0-16.0); IMMATURE GRANULOCYTE # 0.2 K/uL (0.0-0.3); IMMATURE GRANULOCYTE % 1.8 %; LYMPHOCYTE # 1.2 K/uL (0.8-4.0); LYMPHOCYTE % 12.5 %; MCH 33.7 pg (27.0-34.0); MCHC 34.3 gm/dL (32.0-36.5); MCV 98.1 fl (83.0-98.0); MONOCYTE # 1.4 K/uL (0.0-1.0); MONOCYTE % 14.3 %; MPV 11.9 fl (9.4-12.4); NEUTROPHIL # (ANC) 6.8 K/uL (1.4-9.0); NEUTROPHIL % 71.2 %; NRBC % 0 /100WBC (0-0.00); PLATELET COUNT 93 K/uL (150-450); RBC 3.09 M/uL (3.50-5.50); RDW-CV 14.7 % (11.9-14.6); WBC 9.5 K/uL (4.0-11.0)
--- NOTE | 2016-09-29 17:22 | NUR ---
Significant Event: Patient is on Precedex. Patient doesn't follow commands, does not open eyes to command. Will open eyes to painful stimuli. Does not withdraw in extremitites X4. Pupils are 3mm and brisk. SBP have been 50's-170's, MAP's 40's-one teens. Patient has been SR-ST with HR 80's-120's. Levo is running at 0.05mcg/kg/min. Levo has been on and off today. Vent is in AC with rate of 18, TV 600, FiO2 of 40%, PEEP of 5. EtCo2 have been 29-34, RR have been 20's. O2 sats have been mid to upper 90's. Lung sounds are clear and diminished. Askew had 1325ml out. OG has Osmolite 1.0 running at 70ml/H which is goal. No residuals. Follow up: Plan is to make patient comfort cares in the morning (09/30/16) when family gets here.
[2016-09-30 04:04] LABS: BICARBONATE 31.2 mmol/L (18.0-23.0); PCO2 34 mmHg (35-45)
[2016-09-30 04:06] LABS: PO2 109 mmHg (80-90)
--- NOTE | 2016-09-30 04:11 | NUR ---
Significant Event: Patient remains intubated and sedated on propofol. Patient does not open eyes to pain or withdraw to pain. Pupils equal and brisk. Occassional spontaneous movement and tremors. 40% Fio2 in AC mode. Tmax 102.5. HR 70s-80s. SBP 80s-170s. Levophed at 0.04 mcg/kg/hr. One large BM, flexiseal removed. Askew intact with large amount of UOP. Follow up: Work with family to determine plan of care
--- NOTE | 2016-09-30 04:58 | NUR ---
No changes made to vent settings this shift. FiO2 currently at 40% for O2 sats of 95-100%. ETCO2 was 28-32 throughout the shift. Breathsounds clear and diminished in the upper lobes and diminished in the bases. Suctioning scant to moderate amounts of creamy secretions. Will continue to monitor patient.
[2016-09-30 05:22] LABS: BASOPHIL % 0.1 %; EOSINOPHIL % 0.3 %; HEMATOCRIT 30.7 % (37.0-53.0); HEMOGLOBIN 10.4 g/dL (11.0-16.0); IMMATURE GRANULOCYTE # 0.2 K/uL (0.0-0.3); IMMATURE GRANULOCYTE % 2.2 %; LYMPHOCYTE # 1.3 K/uL (0.8-4.0); LYMPHOCYTE % 18.1 %; MCH 33.4 pg (27.0-34.0); MCHC 33.9 gm/dL (32.0-36.5); MCV 98.7 fl (83.0-98.0); MONOCYTE # 1.1 K/uL (0.0-1.0); MONOCYTE % 14.9 %; MPV 11.6 fl (9.4-12.4); NEUTROPHIL # (ANC) 4.7 K/uL (1.4-9.0); NEUTROPHIL % 64.4 %; NRBC % 0 /100WBC (0-0.00); PLATELET COUNT 98 K/uL (150-450); RBC 3.11 M/uL (3.50-5.50); RDW-CV 15.1 % (11.9-14.6); WBC 7.3 K/uL (4.0-11.0)
[2016-09-30 06:08] LABS: ALBUMIN 2.3 gm/dL (3.5-5.0); ANION GAP 11.4 (10.0-19.0); CALCIUM 9.2 mg/dL (8.5-10.5); CREATININE 1.1 mg/dL (0.6-1.3); MAGNESIUM 2.2 mg/dL (1.8-2.6); POTASSIUM 3.4 mMol/L (3.7-5.1); TOTAL PROTEIN 5.3 g/dL (6.0-8.4)
[2016-09-30 06:09] LABS: TOTAL BILIRUBIN 0.7 mg/dL (0.0-1.5)
--- NOTE | 2016-09-30 17:09 | NUR ---
D: SEPTIC I: O2 R: PT WAS COMPASSIONATELY EXTUBATED @ 11:24 TO A 2 LPM NC PER FAMILY REQUEST, NO OTHER SIGNFICANT CHANGES T/O DAY P: CONT.
--- NOTE | 2016-10-01 04:31 | NUR ---
Significant Event: PT REMAINS COMFORT CARE STATUS. IVP MORPHINE GIVEN X3 DOSES BY THIS RN; IVP ATIVAN GIVEN X1 DOSE THIS SHIFT. VSS; HR 70S-80S, SPO2 88-94, RR TEENS, TMAX 101.0. APPEARS COMFORTABLE AT THIS TIME. SPONTANEOUS COUGH PRESENT AND PATIENT CLEARS SECREATIONS WITH MINIMAL EFFORT. Follow up: CONTINUE QUE BURCIAGA RN
--- NOTE | 2016-10-01 16:22 | NUR ---
Significant Event:Here from ICU around 0600.Is on comfort cares.No verbal response.Does not respond when spoken to.Has PICC line in Rt.upper arm.Has O2 on at 2L/NC.Has occ.loose congested cough.Mouth breathes & mouth is very dry.Oral cares done freq.Askew drning yellow urine with some sediment.Turned freq.Groin areas are very red/excoriated looking.Had MS IV at 0916.Had atropine subling.gtts at 1122.Had tylenol suppos.at 1126 for 101.6 axillary temp.Had roxanol 5mg subling.at 1358 & 1530.Has alot of edema everywhere.Has alot of body tremors.Skin very ecchymotic.Last temp 100.2 axillary. Follow up:
--- NOTE | 2016-10-02 05:51 | NUR ---
Significant Event: Patient unresponsive, mouth breaths and needs frequent oral cares. Repositioned q 2hours and gave morphine and ativan as needed for tremors and comfort (see e-mar) last given at 0535 and repositioned at that time too. Azar to ALYX. Temp was 103 at start of shift, did receive tylenol supp. but temp only came down to 102.4. At times Respirations were as high as 52 with heart rates in the 125 on up. More relaxed now and respiration have decreased with medications. Follow up: Continue comfort cares.
--- NOTE | 2016-10-02 10:41 | NUR ---
COMFORT MEASURES NOTED. WILL ASSIST NEEDED.
--- NOTE | 2016-10-02 11:00 | NUR ---
Theodora-Palliative and myself called patients ex- together. Talked about a transition back to [facility] today on Hospice. We talked thru the financial pieces and her feelings. She was fine with this but we also needed to call patient's daughter/DAMIEN Scott. 1105 called [facility] to see if it was even a possibility for return especially with new diagnoses of MRSA in the sputum? 1140 Called patients daughter Tricia #[phone], she is fine with return to [facility]ospice if they can accept. 1215 [facility] called, will not be able to accommodate new diagnoses. 1235 Called Tyler Yip (will let her mom know Yesenia know) and informed his nurse Kaitlyn. Will plan to just stay here.
--- NOTE | 2016-10-02 16:53 | NUR ---
PATIENT ON COMFORT CARES. NON RESPONSIVE, DOES SPARODICALLY OPEN EYES, TURN Q2HRS. PICC TO RIGHT UPPER ARM, RED PORT DOES NOT GIVE BLOOD RETURN, DOES FLUSH BUT IS SLUGGISH, PURPLE PORT GIVES GREAT BLOOD RETURN AND FLUSHES WELL. ON ROOM AIR, OXYGEN SATURATION IS 87-89%. MORPHINE 2MG IVP GIVEN X1 FOR AIR HUNGER AT 1400. MODERATE EFFECTIVENESS NOTED. ATIVAN 0.5MG GIVEN X1 AT 1450 FOR RESTLESSNESS. EFFECTIVENESS NOTED. EDEMA NOTED, SPARODIC MOTTLING. LAST BLOOD PRESSURE 120/79. LOW GRADE TEMPS OF 99.3 NOTED TODAY. FAMILY NOT AT BEDSIDE. PLAN IS FOR PATIENT TO REMAIN HERE [facility] COULD NOT ACCOMODATE PATIENT RETURN WITH MRSA STATUS PER CARE MANAGEMENT.
== END 2016-10-02 22:37 | disposition expired | DRG 853 ==
LOC: GMED 08:26 → GMSU 09:52 → GICU 09:52 → GMSU 10-01 07:17
PROVIDERS: Emergency Medicine; Hospitalist; Internal Medicine; Internal Medicine Critical Care Medicine; Internal Medicine Hematology & Oncology; Internal Medicine Pulmonary Disease; Nurse Practitioner; ADMIT Family Medicine
DX: A41.9 Sepsis, unspecified organism (principal); J96.02 Acute respiratory failure with hypercapnia; R65.21 Severe sepsis with septic shock; N17.0 Acute kidney failure with tubular necrosis; J69.0 Pneumonitis due to inhalation of food and vomit; G93.41 Metabolic encephalopathy; E87.0 Hyperosmolality and hypernatremia; Z51.5 Encounter for palliative care; R13.10 Dysphagia, unspecified; J15.212 Pneumonia due to Methicillin resistant Staphylococcus aureus; J96.21 Acute and chronic respiratory failure with hypoxia; J15.0 Pneumonia due to Klebsiella pneumoniae; L89.153 Pressure ulcer of sacral region, stage 3; E44.0 Moderate protein-calorie malnutrition; J98.11 Atelectasis; Z66 Do not resuscitate; E83.39 Other disorders of phosphorus metabolism; E66.01 Morbid (severe) obesity due to excess calories; I10 Essential (primary) hypertension; E11.9 Type 2 diabetes mellitus without complications; F43.10 Post-traumatic stress disorder, unspecified; Z86.711 Personal history of pulmonary embolism; Z79.01 Long term (current) use of anticoagulants; E87.6 Hypokalemia; I48.0 Paroxysmal atrial fibrillation; I69.319 Unspecified symptoms and signs involving cognitive functions following cerebral infarction; G89.4 Chronic pain syndrome; M19.90 Unspecified osteoarthritis, unspecified site; G47.33 Obstructive sleep apnea (adult) (pediatric); Z87.01 Personal history of pneumonia (recurrent); J44.9 Chronic obstructive pulmonary disease, unspecified; F20.9 Schizophrenia, unspecified; Z79.52 Long term (current) use of systemic steroids; Z79.899 Other long term (current) drug therapy; Z74.01 Bed confinement status; Z87.891 Personal history of nicotine dependence; Z99.3 Dependence on wheelchair; R25.1 Tremor, unspecified; Z68.27 Body mass index [BMI] 27.0-27.9, adult; D69.6 Thrombocytopenia, unspecified; Z78.1 Physical restraint status; R41.0 Disorientation, unspecified; I95.9 Hypotension, unspecified
CPT/HCPCS: C1751; C9113; J0133; J0696; J1630; J1644; J1720; J1956; J2060; J2250; J2270; J2370; J2543; J2704; J3010; J3370; J3475; J3480; J7030; J7040; J7050; J7060; P9017; Q2009

== ENCOUNTER → 2016-09-21 | Outpatient (CLI) | payer MEDICARE | END | disposition disaster alternative care site (69) | LOC: GAMB 08:11 | DX: J96.00 Acute respiratory failure, unspecified whether with hypoxia or hypercapnia (principal); R40.20 Unspecified coma; Z88.8 Allergy status to other drugs, medicaments and biological substances | CPT/HCPCS: A0422; A0425; A0427 ==